=== PATIENT | female | born 1970 | race African-American/Black ===

== ENCOUNTER 2019-06-07 08:37 | Inpatient (IN) ==
--- NOTE | 2019-06-07 10:15 | Diag Imaging Result Doc PS360 ---
EXAM: CHEST-PORTABLE - 06/07/2019 HISTORY: stroke like symptoms TECHNIQUE: Portable chest COMPARISON: 07/12/2018 FINDINGS: Heart size is normal. The lungs appear essentially clear. There is apparent artifact from nipple shadow noted at the lateral right base. There is no pleural effusion or pneumothorax identified. IMPRESSION: No evidence of acute disease. Electronically signed by Roshan Huang 06/07/2019 10:13 AM
--- NOTE | 2019-06-07 10:17 | Diag Imaging Result Doc PS360 ---
EXAM: CT HEAD W/O CONTRAST - 06/07/2019 HISTORY: stroke like symptoms TECHNIQUE: CT head without contrast COMPARISON: None. FINDINGS: There is no evidence of intracranial hemorrhage, mass effect, midline shift, or hydrocephalus. There is no evidence of infarct, although acute infarcts may not be. There is no evidence of skull fracture. IMPRESSION: No visible acute intracranial abnormality. No hemorrhage or mass effect. This exam was performed using automated exposure control, adjustment of mA or kV according to patient size, and/or use of iterative reconstruction technique. Electronically signed by Roshan Huang 06/07/2019 10:15 AM
[2019-06-07 10:28] LABS: CREATININE 1.3 mg/dL (0.5-0.9); TOTAL BILIRUBIN 0.5 mg/dL (0.20-1.00); TOTAL PROTEIN 6.1 g/dL (6.3-8.3)
[2019-06-07 10:29] LABS: CALCIUM 6.1 mg/dL (8.8-10.2)
[2019-06-07] MEDS ORDERED: CALCIUM CHLORIDE 1 GM in NS 100 ML IV ONE (10:29)
--- NOTE | 2019-06-07 10:30 | PROVIDER DOCUMENTATION ---
This chart was entered by Mary Blue Scribe, acting as scribe for Heaven Michel MD. HPI-Neurological Disorder - General Chief Complaint: Numbness Stated Complaint: NUMBNESS (R) SIDE Time Seen by Provider: 06/07/19 08:50 Source: patient Allergies/Adverse Reactions: Patient Allergies Allergy/AdvReac Type Severity Reaction Status Date / Time Penicillins Allergy Intermediate RASH Verified 05/31/18 07:12 Home Medications: Home Medication List Medication Instructions Recorded Confirmed Last Taken Type Acetaminophen with Codeine 1 ea PO Q4H PRN PRN #15 tab 02/07/18 02/23/18 Unknown Rx [Tylenol with Codeine #3] Colchicine 0.6 mg PO DAILY PRN 02/07/18 02/23/18 Unknown History Esomeprazole [Nexium] 40 mg PO DAILY 02/07/18 02/23/18 Unknown History Promethazine [Phenergan] 25 mg PO Q6H PRN PRN #12 tab 02/07/18 02/23/18 Unknown Rx Acetaminophen with Codeine 1 ea PO Q4H PRN PRN #12 tab 02/23/18 Unknown Rx [Tylenol with Codeine #3] Allopurinol 100 mg PO DAILY #15 tab 02/23/18 Unknown Rx Hydrocodone/APAP 7.5 mg/325 mg 1 ea PO Q8H PRN PRN #10 tab 05/31/18 Unknown Rx [[place]-7.5] Indomethacin 50 mg PO TID PRN #20 cap 05/31/18 Unknown Rx Azithromycin 250 mg PO DIRECTED #6 tablet 07/12/18 Unknown Rx Indomethacin [Indocin] 25 mg PO DIRECTED #40 capsule 07/12/18 Unknown Rx - History of Present Illness-Neuro Nature of Presenting Problem: Patient is a 49 year old female who presents with numbness and tingling to right arm and right leg. States symptoms started yesterday and have worsened. History of TIA 3 weeks ago. Severity: reports: mild Onset/Duration: reports: 24 hours ago Timing: reports: still present, getting worse Character of Deficits: reports: altered sensation New weakness or altered sensation location:: reports: RUE, RLE Cognitive Baseline: alert, oriented x3 Gait Baseline: walks without assistance Associated Symptoms: reports: denies symptoms Similar Symptoms Previously?: Yes Recently seen or treated by another doctor?: No Review of Systems - Adult - REVIEW OF SYSTEMS - ADULT Constitutional: reports: no symptoms reported. denies: chills, fever, fatique Eyes: reports: no symptoms reported Ears, Nose, Mouth & Throat: reports: no symptoms reported Cardiovascular: reports: no symptoms reported Respiratory: reports: no symptoms reported Gastrointestinal: reports: no symptoms reported Genitourinary: reports: no symptoms reported Musculoskeletal: reports: no symptoms reported Integumentary: reports: no symptoms reported Neurological: reports: see HPI, numbness (RUE and RLE), paresthesia (RUE and RLE). denies: dizziness/vertigo, headache/migraines Psychiatric: reports: no symptoms reported Endocrine: reports: no symptoms reported Hematologic/Lymphatic: reports: no symptoms reported Allergic/Immunologic: reports: no symptoms reported All Other Systems: Reviewed and Negative Past History - Adult - PAST MEDICAL HISTORY-ADULT Review of Records: reports: Old Records Reviewed, Nursing Assessment Review, Med ications Reviewed, Social history reviewed & non-contributory. Major Childhood Illnesses: reports: denies history Cardiovascular: reports: HTN, hyperlipidemia Respiratory: reports: asthma Gastrointestinal: reports: pancreatitis Obstetrical/Gynecological: reports: denies history Genitourinary: reports: kidney disease Musculoskeletal: reports: arthritis (gout) Neurological: reports: Seizures/Epilepsy Psychiatric: reports: anxiety Endocrine/Immune: reports: other (gout) Other Conditions: reports: denies history - PRIOR SURGERIES/PROCEDURES Surgical/Procedure History: reports: cholecystectomy, , other (sinus surgery) - IMMUNIZATION STATUS Childhood Immunizations: See Nurse Assessment Flu Vaccine: See Nurse Assessment - FAMILY HISTORY Family History: reviewed, not pertinent - SOCIAL HISTORY Smoking: cigarettes, less than 1 pack/day Provider spent 3-5 mins advising pt. on dangers of tobacco.: Discussed manners to quit use, and f/u contacts for add'l counseling. Substance Use: alcohol (former) Physical Exam- Neurological - Physical Exam-Neuro Initial Vital Signs Reviewed: Yes General Appearance: alert, no apparent distress. negative: lethargic Eye Exam: bilateral eye: normal inspection HENMT: normocephalic/atraumatic, moist mucous membranes. negative: angioedema Head Injury: no evidence of injury. negative: ecchymosis, lacerations, swelling Respiratory: chest non-tender, lungs clear, normal breath sounds. negative: rales Cardiovascular: normal peripheral pulses, regular rate, rhythm. negative: tachycardia Abdominal Exam: normal bowel sounds, non tender, soft. negative: rigid Extremity: normal inspection. 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 negative: facial droop Motor/Sensory: no motor deficit, no pronator drift, sensory deficit (RUE and RLE.). negative: pronator drift (R), pronator drift (L) Neurologic: sensory deficit (RUE and RLE). negative: aphasia, facial droop Integumentary: normal color, normal turgor, warm/dry. negative: cyanosis, ecchymosis, rash Psych/Mental Status: normal mood/affect, oriented x 3. negative: anxious Progress - PLAN OF CARE/RESULTS Progress/Plan/Lab Results: Vital Signs - 8 hr 06/07/19 08:45 06/07/19 09:09 06/07/19 10:44 Temperature 99.1 F Pulse Rate 108 H 102 H 99 H Respiratory Rate 18 18 20 Blood Pressure 119/79 124/86 139/96 O2 Sat by Pulse Oximetry 100 100 100 06/07/19 11:30 Temperature Pulse Rate 104 H Respiratory Rate 14 Blood Pressure 144/98 O2 Sat by Pulse Oximetry 100 Laboratory Results - last 24 hr 06/07/19 06/07/19 06/07/19 09:22 09:54 09:54 WBC RBC Hgb Hct MCV MCH MCHC RDW Std Deviation Plt Count MPV Immature Gran % (Auto) Neut % (Auto) Lymph % (Auto) [place] % (Auto) Eos % (Auto) Baso % (Auto) Immature Gran # (Auto) Neut # (Auto) Lymph # (Auto) [place] # (Auto) Eos # (Auto) Baso # (Auto) PT INR PTT (Actin FS) Sodium 139 Potassium 3.0 L Chloride 110 H Carbon Dioxide 16 L Anion Gap 14 BUN 18 Creatinine 1.3 H Estimated GFR/1.73 m2 43 BUN/Creatinine Ratio 14 Glucose 103 POC Glucose 107 H Calculated Osmolality 280 Calcium 6.1 L* Phosphorus Total Bilirubin 0.50 AST 17 ALT 51 H Alkaline Phosphatase 135 H Troponin T 0.027 Total Protein 6.1 L Albumin 3.0 L Globulin 3.0 Albumin/Globulin Ratio 1.0 PTH Intact Stool Occult Blood Blood Type Antibody Screen Crossmatch 08/11/2506/07/19 06/07/19 09:54 09:54 09:54 WBC 12.13 H RBC 1.98 L Hgb 6.2 L Hct 20.2 L MCV 102.0 H MCH 31.3 H MCHC 30.7 L RDW Std Deviation 21.9 H Plt Count 131 MPV 12.2 H Immature Gran % (Auto) 0.2 Neut % (Auto) 74.1 Lymph % (Auto) 15.3 L [place] % (Auto) 8.7 Eos % (Auto) 1.5 Baso % (Auto) 0.2 Immature Gran # (Auto) 0.02 Neut # (Auto) 9.01 H Lymph # (Auto) 1.85 [place] # (Auto) 1.05 H Eos # (Auto) 0.18 Baso # (Auto) 0.02 PT 14.5 INR 1.07 PTT (Actin FS) 31.3 Sodium Potassium Chloride Carbon Dioxide Anion Gap BUN Creatinine Estimated GFR/1.73 m2 BUN/Creatinine Ratio Glucose POC Glucose Calculated Osmolality Calcium Phosphorus Total Bilirubin AST ALT Alkaline Phosphatase Troponin T Total Protein Albumin Globulin Albumin/Globulin Ratio PTH Intact 115 H Stool Occult Blood Blood Type Antibody Screen Crossmatch 06/07/19 06/07/19 06/07/19 09:54 09:54 11:40 WBC RBC Hgb Hct MCV MCH MCHC RDW Std Deviation Plt Count MPV Immature Gran % (Auto) Neut % (Auto) Lymph % (Auto) [place] % (Auto) Eos % (Auto) Baso % (Auto) Immature Gran # (Auto) Neut # (Auto) Lymph # (Auto) [place] # (Auto) Eos # (Auto) Baso # (Auto) PT INR PTT (Actin FS) Sodium Potassium Chloride Carbon Dioxide Anion Gap BUN Creatinine Estimated GFR/1.73 m2 BUN/Creatinine Ratio Glucose POC Glucose Calculated Osmolality Calcium Phosphorus 3.7 Total Bilirubin AST ALT Alkaline Phosphatase Troponin T Total Protein Albumin Globulin Albumin/Globulin Ratio PTH Intact Stool Occult Blood NEGATIVE Blood Type O POSITIVE Antibody Screen NEGATIVE Crossmatch See Detail Orders Category Date Time Status Admit - [facility] Routine AdmDCTranf 06/07/19 12:57 Active Admit [facility] Routine AdmDCTranf 06/07/19 15:48 Active Activity - Up with Assistance ORDERED Care 06/07/19 12:57 Active Apply Mechanical Device [QM] ORDERED Care 06/07/19 12:57 Active Cardiac Monitoring DIRECTED Care 06/07/19 09:08 Active Finger Stick Blood Sugar (ED) DIRECTED Care 06/07/19 09:08 Active Intake and Output-Strict ORDERED Care 06/07/19 12:57 Active Misc. NRSG Communication Order DIRECTED Care 06/07/19 09:08 Active Nursing- MD Consult Request ROUTINE Care 06/07/19 13:00 Active Saline Loc NOW Care 06/07/19 09:08 Active Transfuse .Give-Transfuse Care 06/07/19 12:28 Active Vital Signs Order Q 6-HR ASSESS Care 06/07/19 13:00 Active Z-Document. for Tele Applied ORDERED Care 06/07/19 13:00 Active Physician/Provider Consults Routine Cons 06/07/19 12:57 Ordered Clear Liquid Diet Diet 06/07/19 13:00 Active NPO Diet 06/08/19 00:01 Active CHEST-PORTABLE [RAD] Stat Exams 06/07/19 09:[address] HEAD W/O CONTRAST [CT] Stat Exams 06/07/19 09:08 Completed MRI BRAIN W/WO CONTRAST [MRI] Stat Exams 06/07/19 12:27 Completed BASIC METABOLIC PANEL [CHEM] DAILY Lab 06/08/19 06:00 Ordered BASIC METABOLIC PANEL [CHEM] DAILY Lab 06/09/19 06:00 Ordered BASIC METABOLIC PANEL [CHEM] DAILY Lab 06/10/19 06:00 Ordered CBC WITH DIFF [HEME] Stat Lab 06/07/19 09:54 Completed CBC WITH NO DIFF [HEME] DAILY Lab 06/08/19 06:00 Ordered CBC WITH NO DIFF [HEME] DAILY Lab 06/09/19 06:00 Ordered CBC WITH NO DIFF [HEME] DAILY Lab 06/10/19 06:00 Ordered CBC WITH NO DIFF [HEME] DAILY Lab 06/11/19 06:00 Ordered CBC WITH NO DIFF [HEME] DAILY Lab 06/12/19 06:00 Ordered COMPREHENSIVE METABOLIC PANEL [CHEM] Stat Lab 06/07/19 09:54 Completed HGB AND HCT [HEME] Q6H Lab 06/07/19 14:40 Completed HGB AND HCT [HEME] Q6H Lab 06/07/19 18:57 Ordered HGB AND HCT [HEME] Q6H Lab 06/08/19 00:57 Ordered HGB AND HCT [HEME] Q6H Lab 06/08/19 06:57 Ordered LRPC (RED CELLS) [BBK] Stat Lab 06/07/19 09:54 Results OCCULT BLOOD SCREEN STOOL PL Stat Lab 06/07/19 11:40 Completed PHOSPHORUS [CHEM] Stat Lab 06/07/19 09:54 Completed PT [PROTIME WITH INR] [COAG] Stat Lab 06/07/19 09:54 Completed PTH INTACT [CHEM] Stat Lab 06/07/19 09:54 Completed PTT [COAG] Stat Lab 06/07/19 09:54 Completed TROPONIN T Stat Lab 06/07/19 09:54 Completed TYPE & SCREEN [BBK] Stat Lab 06/07/19 09:54 Results URINALYSIS W/POSS RFLX CULT [URINALYSIS] Stat Lab 06/07/19 09:08 Uncollected URINE DRUG SCREEN Stat Lab 06/07/19 16:33 Ordered 0.9% Sodium Chloride Inj [Ns] 1,000 ml Med 06/07/19 13:00 Active IV 75 mls/hr Calcium Chloride 1 gm Med 06/07/19 10:29 Discontinued 0.9% Sodium Chloride Inj [Ns] 100 ml IV NOW Ondansetron [Zofran] Med 06/07/19 12:57 Active 4 mg IV Q4H PRN PRN Pantoprazole [Protonix] Med 06/07/19 13:00 Active 40 mg IV Q12H Sodium Chloride 0.9% Med 06/07/19 13:00 Active 5 ml INJ DIRECTED Telemetry [OM.EQ] Routine Oth 06/07/19 12:57 Active EKG [EKG] Stat Ther 06/07/19 09:08 Draft Echo Spec/Color Doppler Routine Ther 06/07/19 12:57 Ordered Transfer/Admit Order [TRANSFER] Routine Transfer 06/07/19 12:26 Completed Result Diagrams: 06/07/19 14:40 06/07/19 09:54 - EKG 1 Time of EKG reading by physician:: 09:28 EKG Read and Signed by:: Heaven Michel EKG Interpretation (*Must complete 3 of following elements*): Abnormal Rate: 101 Rhythm: sinus tachycardia Clements: normal IA Interval: normal Comments: possible left atrial enlargement - XRAY 1 XRAY Study: Chest Impression: See EMR Report ( EXAM: CHEST-PORTABLE - 06/07/2019 HISTORY: stroke like symptoms TECHNIQUE: Portable chest COMPARISON: 07/12/2018 FINDINGS: H eart size is normal. The lungs appear essentially clear. There is apparent artifact from nipple shadow noted at the lateral right base. There is no pleural effusion or pneumothorax identified. IMPRESSION: No evidence of acute disease. Electronically signed by Roshan Huang 06/07/2019 10:13 AM 06/07/19 1013 Interpreting Physician: Roshan Huang MD Dictated Date/Time: 06/07/19 1010 cc: Heaven Michel MD; None,PCP) - CT/MRI 1 CT Study: Head Impression: See EMR Report ( EXAM: CT HEAD W/O CONTRAST - 06/07/2019 HISTORY: stroke like symptoms TECHNIQUE: CT head without contrast COMPARISON: None. FINDINGS: There is no evidence of intracranial hemorrhage, mass effect, midline shift, or hydrocephalus. There is no evidence of infarct, although acute infarcts may not be. There is no evidence of skull fracture. IMPRESSION: No visible acute intracranial abnormality. No hemorrhage or mass effect. This exam was performed using automated exposure control, adjustment of mA or kV according to patient size, and/or use of iterative reconstruction technique. Electronically signed by Roshanakila Huang 06/07/2019 10:15 AM 06/07/19 1015 Interpreting Physician: Roshan Huang MD Dictated Date/Time: 06/07/19 1013 cc: Heaven Michel MD; None,PCP) - CONSULTS/PCP/HOSPITALIST Notification #1 *Consult/PCP/Hospitalist*: Dr. Steel Time Discussed: 13:19 Reason/Comments: Dr. Michel consulted with Dr. Steel about patient Consult Disposition: Will see in ED, Admit Departure - Departure Date of Disposition Decision: 06/07/19 Time of Disposition Decision: 12:32 DIAGNOSIS: Hypocalcemia, TIA (transient ischemic attack), Anemia Disposition: ADMITTED INPATIENT 09 Certified Medical Emergency: Emergent Condition: Fair - Critical Care Note This patient required my direct & personal management of CC.: Yes Total Time (mins): 32 Critical Care Statement: This patient required my direct personal management to treat or rule out processes, the absence of which, could potentiallly result in sudden, clinically significant life or limb threatening deterioration. Attestation - Physician/ DAYANA Attestation The physician spent face to face time with patient:: Yes Advanced Practice Provider documentation review:: Supervising physician onsite and consulted in the evaluation and care of this patient. The physician did have a face to face encounter with the patient. This chart was documented by the indicated scribe, (Mary Blue Scribe) and accurately reflects the services I performed and decisions made by me, Heaven Michel MD, as attested by the provider's signature.
[2019-06-07 11:02] LABS: INR 1.07; PROTIME 14.5 Seconds (11.0-16.0); PTT 31.3 Seconds (22.3-41.8)
[2019-06-07 11:15] LABS: BASO# 0.02 X1000 (0.0-0.2); BASO% 0.2 % (0.0-0.8); EOS# 0.18 X1000 (0.0-0.7); EOS% 1.5 % (0.0-10.0); HEMATOCRIT 20.2 % (37.0-47.0); HEMOGLOBIN 6.2 g/dL (12.0-16.0); IMM GRAN# 0.02 X1000 (0.0-0.04); IMM GRAN% 0.2 % (0.0-0.5); LYMPH# 1.85 X1000 (1.2-3.4); LYMPH% 15.3 % (20.5-51.1); MCH 31.3 PG (27-31); MCHC 30.7 g/dL (33-37); MONO# 1.05 X1000 (0.11-0.59); MONO% 8.7 % (1.7-9.3); MPV 12.2 FL (7.4-10.4); NEUT# 9.01 X1000 (1.4-6.5); NEUT% 74.1 % (42.2-75.2); PLT 131 X1000 (130-400); RBC 1.98 XMIL (4.2-5.4); RDW 21.9 % (11.5-14.5); WBC 12.13 X1000 (4.8-10.8)
--- NOTE | 2019-06-07 11:57 | EKG Report ---
Test Performed on : 06/07/2019 09:28:24 AM Test Reason : Stroke like symptoms Blood Pressure : / mmHG Vent. Rate : 101 BPM Atrial Rate : 101 BPM P-R Int : 144 ms QRS Dur : 064 ms QT Int : 372 ms P-R-T Axes : 078 052 069 degrees QTc Int : 482 ms Sinus tachycardia. Possible Left atrial enlargement Borderline ECG When compared with ECG of 12-JUL-2018 09:59, No significant change was found Unconfirmed Result
[2019-06-07 12:30] LABS: OCCULT BLOOD 1 NEGATIVE (NEGATIVE)
[2019-06-07] MEDS ORDERED: ZOFRAN IV PRN ×2 (12:57→17:23)
[2019-06-07] MEDS ORDERED: PROTONIX IV SCH (13:00)
[2019-06-07] MEDS ORDERED: NS 1,000 ML IV SCH (13:00)
[2019-06-07] MEDS ORDERED: SODIUM CHLORIDE 0.9% INJ SCH ×2 (13:00→17:30)
--- NOTE | 2019-06-07 14:52 | Diag Imaging Result Doc PS360 ---
EXAM: MRI BRAIN W/WO CONTRAST - 06/07/2019 HISTORY: stroke like symptoms TECHNIQUE: MRI brain without and with contrast. Images are obtained prior to and following gadolinium administration. COMPARISON: 06/07/2019 CT head without contrast FINDINGS: There is no evidence of intracranial hemorrhage, mass effect, midline shift, or hydrocephalus. There are no substantial signal abnormalities identified. The diffusion weighted images show no areas of restricted diffusion (no evidence of acute infarct). There is no abnormal enhancement identified. IMPRESSION: Unremarkable exam. No evidence of infarct. Electronically signed by Roshan Huang 06/07/2019 2:50 PM
[2019-06-07 14:53] LABS: HEMATOCRIT 19.3 % (37.0-47.0); HEMOGLOBIN 6.2 g/dL (12.0-16.0)
[2019-06-07] MEDS ORDERED: POTASSIUM CHLORIDE 20% LIQUID PO ONE (15:16)
[2019-06-07] MEDS ORDERED: NS 500 ML ONE (18:29)
[2019-06-07] MEDS ORDERED: TYLENOL PO ONE (18:30)
[2019-06-07 18:36] LABS: UR AMPHETAMINES QUAL NONE DETECTED (NONE DETECT); UR BARBITUATES QUAL NONE DETECTED (NONE DETECT); UR BENZODIAZEPIN QUAL NONE DETECTED (NONE DETECT); UR CANNABINOIDS QUAL NONE DETECTED (NONE DETECT); UR COCAINE QUAL NONE DETECTED (NONE DETECT); UR METHADONE QUAL NONE DETECTED (NONE DETECT); UR OPIATES QUAL NONE DETECTED (NONE DETECT); UR OXYCODONE QUAL NONE DETECTED (NONE DETECT); UR PCP QUAL NONE DETECTED (NONE DETECT)
[2019-06-07 19:44] LABS: HEMATOCRIT 19.9 % (37.0-47.0); HEMOGLOBIN 6.2 g/dL (12.0-16.0)
[2019-06-07] MEDS ORDERED: LMX 5 CREAM TOP PRN (19:50)
--- NOTE | 2019-06-07 19:58 | HISTORY AND PHYSICAL ---
PRIMARY CARE PROVIDER: Dr. Mauricio. First name unknown, but he is located at [facility] in [place] as the primary care, purple pod. Phone number is [phone]. MOBILE PET GROOMER: Dr. Saab. CHIEF COMPLAINT: Numbness in the right arm and right leg, and blood with her bowel movement this morning. HISTORY OF PRESENT ILLNESS: Ms. Jodie Alcaraz is a 49-year-old female with a medical history, most recently around 5 weeks ago or in the last 5 weeks had a stroke, causing right-sided residual. She had a witnessed seizure at [facility] and at that time was taken to [facility] in [place], [place], where she was diagnosed with stroke. Then around 3 weeks ago she had a TIA which affected her left side, but that resolved. Most recently she came here to visit her family. She has been living in [place]. She has been working at the [employer] up until she had her stroke. She claims that this morning she had a bowel movement with bright red blood in the toilet and so much that it was dripping down. Denies that it was vaginal. States that it was definitely gastrointestinal. During her stay while she was at [facility] in [place], [place], she was treated for a GI bleed there. There are not a whole lot of details on that. Apparently, according to her, she was scoped from the top and the bottom and they treated her for a lower GI bleed. She had received 2 packed red blood cells while she was there. Apparently she has been a pretty heavy drinker for at least 20 years out of her life, gin every other day at least except for when she had her stroke. She has not had any alcohol since then. So, no alcohol in the last 5 weeks according to her. Vital signs are stable. There is no obvious active bleeding, although she does have a low hemoglobin and hematocrit. We will transfer over to [facility]. Neurologic- parks, she does complain of numbness and tingling in the right upper and lower extremity, but MRI is negative for any acute stroke. PAST MEDICAL HISTORY: 1. 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 2. TIA 3 weeks ago, 05/2019. 3. Gout. 4. Hypertension. 5. Anxiety attacks. 6. Depression. 7. Seizures secondary to alcohol withdrawal. 8. History of gastrointestinal bleeding. 9. History of pancreatitis. PAST SURGICAL HISTORY: 1. Cholecystectomy. 2. section. 3. Sinus surgery. 4. Left eye/facial surgery secondary to trauma. 5. Recent EGD and colonoscopy in the last 5 weeks. SOCIAL HISTORY: Less than a half pack per day smoker and has so for 20+ years. No alcohol since her stroke around 5 weeks ago, but prior to that drank gin every other day for 20-plus years. Denies any illicit drug use. She lives by herself in [place], [place] and has been working at the [employer] up until her stroke. FAMILY HISTORY: On the mother's side of the family there is lung cancer and stroke. On father's side of the family is breast cancer and her father had gastric cancer. ALLERGIES: Penicillin. MEDICATIONS: Home medications have not been verified, so we will wait for those to be reconciled, as she has most recently had some changes to her medications. REVIEW OF SYSTEMS: Fourteen-point review of systems are complete and all are negative except for those mentioned above in HPI. She denied having abdominal pain until palpated, and she had generalized abdominal pain. PHYSICAL EXAMINATION: VITAL SIGNS: Temperature 99.1 degrees, heart rate 99, respiratory rate 20, blood pressure 139/96, O2 saturation 100% on room air. Five feet 6 inches tall, 98 pounds. BMI is 15.8. GENERAL: Ms. Jodie Alcaraz is a 49-year-old female. She is in no acute distress. She is able to answer most questions appropriately. HEENT: Atraumatic, normocephalic. Pupils equal, round and reactive to light. Extraocular movements intact. Mucous membranes are dry. NECK: Trachea midline. CARDIOVASCULAR: S1, S2. Regular rate and rhythm. No rubs, gallops, murmurs. No lower extremity edema. Dorsalis and radial pulses +2. Negative JVD or carotid bruits. PULMONARY: Clear to auscultation. Bilateral breath sounds. No accessory muscle use or work of breathing noted. GASTROINTESTINAL: Soft. Tender in all 4 quadrants. Positive bowel sounds that are hyperactive x4. EXTREMITIES: Moves left upper and lower extremity equally with strength of 5/5. The right upper and lower extremities have strength of 4/5. Decreased range of motion, is slow to move. NEUROLOGIC: Oriented x3. Follows commands. Sensory is intact except for the right upper and lower extremity. SKIN: Warm, dry, intact. LABORATORY DATA: White blood cells 12,000, hemoglobin 6, hematocrit 19, platelet count 131,000. INR is 1.07, PTT 31.3. Sodium 139, potassium 3.0, BUN 18, creatinine 1.3, glucose 107, calcium 6.1, phosphorus 3.7, bilirubin 0.50, AST 17, ALT 51. Troponin 0.027. Albumin 3.0. PTH 115. Stool is negative for blood. No micro. IMAGING: Chest x-ray: No acute disease. Head CT: There is no acute infarct but there are also really no signs of an old infarct, either. Brain MRI is also negative. There are no acute findings. There is also no mention of old stroke, either. EKG: Sinus tachycardia, rate 101, QTc 482. ASSESSMENT AND PLAN: 1. Recent gastrointestinal bleed, treated at [facility], now with a new recurrent gastrointestinal bleed with lower gastrointestinal bright red blood this morning x1. She states that she has been taken ibuprofen 400 mg every day for the last 6 days, but prior to today she has been having normal brown bowel movements every day. She has been having nausea and some chills with it. She is started on Protonix twice a day. She is going to be getting 2 units of packed red blood cells. We will do serial hemoglobin and hematocrit. We are requesting information from [facility] on the details of an esophagogastroduodenoscopy and a colonoscopy that she is claiming to have had done there. We are consulting Gastroenterology, Dr. Vitale. 2. Recent cerebrovascular accident with right-sided residual, recent transient ischemic attack. States she has been taking ibuprofen instead of aspirin, and is just really not a good historian on her medications that she takes. She is unable to tell me much detail about what medications she was sent home on. She is actually here for complaints of new onset of numbness and tingling in the right arm and the right lower extremity, but imaging head CT and brain MRI are both negative for any new findings. She denies any pain in her back. We will do an echocardiogram to evaluate heart function and any risk for clots. 3. Electrolyte imbalance with hypokalemia and hypocalcemia. It looks like we have only been giving calcium. The potassium is 3.0, so we will need to give her some potassium as well and re-evaluate in the morning. Calcium is low at 6.1, and a PTH level was drawn and is actually elevated at 115. 4. It looks like she may have some chronic kidney disease stage 2 or 3. Creatinine is 1.3, and last year it was 1.8, so no acute injury at this time. She is getting intravenous fluid hydration. 5. Leukocytosis. Could just be all inflammatory. We need to get a urinalysis. We will get blood culture. Chest x-ray is clear. Essentially afebrile. The temperature is 99.1 degrees. 6. History of gout. Her medications have not been reconciled so we cannot start anything back just yet. 7. Hypertension. Stable right now. 8. Anxiety and depression. 9. Seizure disorder from alcohol withdrawals in the past. We will monitor. 10. Tobacco abuse. Cessation discussed. 11. Remote history of alcohol abuse. Has been without alcohol for at least 5 weeks since her stroke. 12. Deep venous thrombosis. Sequential compression devices. Dictated by AVINASH Brower for David Serrano MD Addendum: Patient seen and examined by myself. Agree with AVINASH note. It reflects my assessment and plan. Patient is being admitted to hospital for GI bleeding. She has been scoped recently approximately one month ago. Will start Protonix 40 mg IV q12, will transfer to [facility] for GI evaluation. Will transfuse if needed and will replete potassium. cc: AVINASH Brower MD Siddharth Patel, MD [facility]
[2019-06-07] MEDS: NEXIUM IV SCH (20:10)
[2019-06-07] MEDS: NS 1,000 ML IV SCH (20:11)
--- NOTE | 2019-06-07 20:18 | Diag Imaging Result Doc PS360 ---
EXAM: SHOULDER-RIGHT 06/07/2019 HISTORY: Right shoulder pain. Evaluate for dislocation TECHNIQUE: Right shoulder two views COMMENT: There is no evidence of fracture or dislocation. No evidence of erosion or periosteal reaction is present. IMPRESSION: No acute bony disease. Electronically signed by Kj Ibanez 06/07/2019 8:16 PM
[2019-06-07] MEDS: TUMS PO SCH (21:11)
--- NOTE | 2019-06-07 23:03 | PROGRESS NOTE ---
DATE: 06/07/2019 INTERVAL HISTORY: Ms. Alcaraz was transferred from [facility] for suspected gastrointestinal bleed and right upper extremity right lower extremity weakness. Apparently, Ms. Alcaraz had recent episode of CVA following right upper extremity lower extremity weakness requiring hospitalization in [facility] where she also had an episode of suspected upper GI bleed requiring endoscopy and blood transfusion who was later on discharged to rehab on aspirin and Plavix likely for secondary CVA prophylaxis and also on prednisone for unclear reason. She came to [facility] with chief complaints of worsening right upper extremity and lower extremity weakness, shortness of breath on exertion. In the [facility], she was found to have tachycardia, low hemoglobin so was transferred to [facility] for further management. SUBJECTIVE: Patient states that she does have prior history of seizures and takes Keppra. She also takes aspirin and Plavix daily. She also took a dose of ibuprofen yesterday. She continues to complain of weakness of right upper and lower extremities. She also complains of right shoulder pain, which has been ongoing for almost 2 weeks now. She denies any chest pain. She denies wheezing. VITALS: Temperature 99.3 degrees, pulse 96, respiratory rate 18, blood pressure 120/70, saturating 100% on room air. OBJECTIVE: General: Cachectic, not in any acute distress. HEENT: Conjunctival pallor. Respiratory: Air entry bilateral equal with no wheeze, rhonchi or crackles. Cardiovascular: S1, S2 normal. No murmur or gallop. Abdomen: Soft. Active bowel sounds. No lower extremity edema. Rectum had brown-looking stool and negative fecal occult blood test. Extremities: She does have significant tenderness in right shoulder region. I am not able to localize or pinpoint location. Her power appears to be 3 to 4/5 in right lower extremity at hip flexion and extension. LABORATORY DATA: Suggestive of macrocytic anemia. Normal platelet count, which is slightly less than the previous platelet count though. Normal coagulation, hypokalemia, hyperchloremia, low bicarbonate, close to normal anion gap, kidney dysfunction, hypocalcemia, and negative occult blood test. ASSESSMENT AND PLAN: 1. Suspected upper gastrointestinal bleed pending records from outside hospital in the setting of use of aspirin, ?Plavix, prednisone and occasional ibuprofen. 2. Acute blood loss anemia. 3. Reported history of recent stroke affecting right upper and lower extremities on aspirin, Plavix for secondary cerebrovascular accident prophylaxis likely. 4. Prior history of peptic ulcer disease. 5. Hypocalcemia. 6. Kidney failure. 7. History of seizure. 8. Right shoulder pain. 9. History of anxiety. PLAN: 1. I will transfuse her 2 units of packed red blood cells. We will follow up with hemoglobin after that. I will also follow up with iron panel, vitamin B12 and folic acid. He does not have active bleeding on my rectal examination, though she does have external hemorrhoids and brown-looking stool. 2. I will also start her on Keppra prophylactically as we await medication reconciliation. I am holding aspirin and Plavix and prednisone from now on until we stabilize hemoglobin. Gastroenterology has been consulted. Discussed with patient. Her questions have been answered. cc: Franklin Bush MD MTDD
[2019-06-07 23:16] LABS: IRON SATURATION 9 %; TIBC 188 ug/dL; TOTAL IRON 16 ug/dL (49-151); UNBOUND IRON 172 ug/dL (112-346)
[2019-06-08 00:08] LABS: FERRITIN 407 ng/mL (13-150)
[2019-06-08 01:34] LABS: URINE SOURCE CLEAN CATCH
[2019-06-08 01:39] LABS: BILIRUBIN URINE NEGATIVE (NEGATIVE); BLOOD URINE NEGATIVE (NEGATIVE); COLOR YELLOW; GLUCOSE URINE NEGATIVE (NEGATIVE); KETONE URINE NEGATIVE (NEGATIVE); LEUKOCYTES URINE NEGATIVE (NEGATIVE); NITRITE URINE NEGATIVE (NEGATIVE); PH URINE 5.5; PROTEIN URINE NEGATIVE (NEGATIVE); TURBIDITY URINE CLEAR (CLEAR); UROBILINOGEN URINE NORMAL (NORMAL)
[2019-06-08 01:40] LABS: UR EPITHELIAL CELLS <10 /HPF (<10); URINE BACTERIA NEGATIVE /HPF; URINE RBC <10 /HPF (<10); URINE WBC <10 /HPF (<10)
[2019-06-08] MEDS: PERCOCET-5 PO PRN ×2 (01:59→18:08)
[2019-06-08] MEDS: KEPPRA 500 MG in NS 100 ML IV SCH ×2 (03:49→15:50)
[2019-06-08 04:28] LABS: HEMATOCRIT 28.3 % (37.0-47.0); HEMOGLOBIN 9.3 g/dL (12.0-16.0); MCH 31.2 PG (27-31); MCHC 32.9 g/dL (33-37); MPV 12.1 FL (7.4-10.4); RBC 2.98 XMIL (4.2-5.4); RDW 19.4 % (11.5-14.5); WBC 11.02 X1000 (4.8-10.8)
[2019-06-08 05:21] LABS: CREATININE 1.2 mg/dL (0.5-0.9); POTASSIUM 3.4 mmol/L (3.5-5.1)
[2019-06-08 05:44] LABS: CALCIUM 6.7 mg/dL (8.8-10.2)
[2019-06-08] MEDS: NEXIUM IV SCH (06:13)
--- NOTE | 2019-06-08 06:28 | Diag Imaging Result Doc PS360 ---
CT ABDOMEN/PELVIS W/O CONTRAST - 06/07/2019 INDICATION: gib COMPARISON: 05/31/2018 FINDINGS: The lung bases are clear and the heart size is normal. The stomach is extremely distended with heterogeneous solid frothy material. There is also moderate constipation. There is moderate rectal stool impaction. There is severe diverticulosis of the colon. No bowel obstruction or inflammation. No radiodense renal stones. No hydronephrosis or hydroureter. Duplicated renal collecting systems bilaterally. There is severe pancreatic atrophy. There are severe coarse dystrophic calcifications all throughout the pancreas compatible with severe chronic pancreatitis. IUD in the uterus in good position. Urinary bladder contains some dense material consistent with excreted contrast from the MRI from yesterday. There are moderate degenerative changes of the spine. No acute or suspicious bony lesion. IMPRESSION: 1. Severe gastric distention with frothy material. This either represents a severe stomachache or gastroparesis. 2. Constipation with rectal stool impaction. 3. Severe diverticulosis coli. 4. Severe chronic pancreatitis with severe pancreatic atrophy. This exam was performed using automated exposure control, adjustment of mA or kV according to patient size, and/or use of iterative reconstruction technique Electronically signed by Benedict Branltey 06/08/2019 6:25 AM
[2019-06-08] MEDS: NS 1,000 ML IV SCH (07:59)
[2019-06-08] MEDS: TUMS PO SCH ×3 (09:14→16:09)
--- NOTE | 2019-06-08 14:56 | ECHO REPORT ---
ORDER DATE: 06/07/2019 ECHOCARDIOGRAPHIC MEASUREMENTS: 1. Interventricular septum 0.8, left ventricular posterior wall 0.8, diastolic diameter 4.5, left atrium 2.9. 2. Aorta 2.7. Aortic valve leaflets were trileaflet. 3. Pulmonic valve was normal. 4. Tricuspid valve was normal. 5. Mitral valve was normal. 6. There is trace pulmonary regurgitation. 7. Mild mitral regurgitation. 8. Mild tricuspid regurgitation. Peak velocity across the aortic valve less than 2 m/sec. There is no aortic stenosis or regurgitation. Peak velocity across the tricuspid valve was 2.4 m/sec. 9. Pulmonary artery systolic pressure of 33 mmHg. 10. Normal left ventricular cavity size. Estimated ejection fraction of 60% to 65%. 11. There is no pericardial effusion or obvious intracardiac mass or thrombus seen. 12. Interatrial septum was aneurysmal. 13. Saline contrast study was done which was negative for patent foramen ovale. cc: MD David Park MD Siddharth Patel, MD
[2019-06-08] MEDS ORDERED: VITAMIN D PO SCH (17:00)
[2019-06-08] MEDS ORDERED: D5W 500 ML IV SCH (17:45)
[2019-06-08] MEDS: DULCOLAX PR SCH ×2 (18:04→21:25)
[2019-06-08] MEDS: MIRALAX PO SCH ×3 (18:09→21:25)
[2019-06-08] MEDS: KLOR-CON PO SCH ×2 (18:09→21:25)
[2019-06-08] MEDS: KEPPRA PO SCH (21:25)
--- NOTE | 2019-06-08 21:33 | PROGRESS NOTE ---
DATE: 06/08/2019 INTERVAL HISTORY: She received 2 units of blood transfusion and she tolerated it well. Did not have any acute other events. She is feeling much better. Shoulder x-ray did not have any acute pathology. She has not had any more bloody bowel movement. Her hypocalcemia is better and she is receiving treatment for vitamin D deficiency. Echocardiogram and CT scan of the abdomen and pelvis were largely normal except stool impaction. She does have some electrolyte abnormality including hypokalemia which is currently being repleted. SUBJECTIVE: She denies any nausea, vomiting, anymore abdominal pain. She continues to have right-sided shoulder pain. I discussed with her about the findings. I answered all of her questions. VITALS: Temperature 98.8 degrees, pulse 90, respiratory 20, blood pressure 110/69, saturating 100% on room air. PHYSICAL EXAMINATION: Has severe protein energy malnutrition, some missing teeth, not in any acute distress. Oral cavity is moist. Air entry bilaterally equal. No wheeze, rhonchi, or crackles. S1, S2 normal. No murmur, rub, or gallop. Abdomen soft. Active bowel sounds. No lower extremity edema. She is alert and oriented x3. She does have some tenderness around right shoulder joint right scapular region. LABS: Suggestive of a mild leukocytosis. Hemoglobin of 9.3 which increased from 6.2 yesterday, platelet of 113,000. She does have , hyperchloremia, hypokalemia, low bicarbonate, what appears to be chronic renal failure in stage 3A range, hypocalcemia which is better to 6.7 calcium, iron saturation suggested she may have component of iron deficiency. No new microbiological data. IMAGING: Brain MRI did not detect any evidence of intracranial hemorrhage, mass effect, midline shift or hydrocephalus. There was no evidence of acute infarct or any abnormal enhancement. The echocardiogram on June 2019 had ejection fraction of 60%-65% without any intracardiac mass or thrombus. Abdomen pelvis CT had rectal stool impaction and constipation. ASSESSMENT AND PLAN: 1. Suspected gastrointestinal bleed in the setting of aspirin and prednisone and occasional ibuprofen use now resolved. I will transition her proton pump inhibitors from oral formulation, GI on board. Will continue to monitor her CBC. I am holding her aspirin for now considering her acute blood loss anemia. Outside hospital records are pending where she claims she had EGD and colonoscopy. 2. History of cerebrovascular accident affecting likely left hemisphere status post right-sided upper and lower extremity weakness. One of the images on records suggests she probably had left cerebellar infarct. I am holding her aspirin and I will resume her statin. I will continue physical therapy. Prior records are pending. 3. Hypocalcemia with vitamin D deficiency is currently being repleted. Hypernatremia, hyperchloremia, low bicarbonate in the setting of hyperchloremic acidosis. I will stop intravenous fluids and follow up with electrolytes tomorrow. I am also giving her small dose of dextrose 5% water. I will continue vitamin D repletion and calcium repletion with calcium carbonate . 4. Kidney failure. The chronicity is unclear however she may have chronic kidney disease stage 3 which appears to be stable. 5. Others. Continue home levetiracetam for history of seizure, allopurinol for history of gout, bisacodyl and MiraLAX for rectal stool impaction, folic acid and iron with multivitamin for recent anemia. DISPOSITION: Continue to monitor patient inside the hospital to make sure she does not have any more bleeding episodes. Plan of care discussed with her, her questions have been answered. In future I would consider getting right shoulder ultrasound to evaluate for her right shoulder pain. cc: Franklin Bush MD MTDD
--- NOTE | 2019-06-08 23:56 | GASTROENTEROLOGY CONSULTATION ---
DATE: 06/08/2019 Reason for consult: hematochezia HPI: Ms. Jodie Alcaraz is a 49 year old woman with h/o alcoholism, chronic pancreatitis, recent CVA with residual right-sided weakness who presented with BRBPR. She reports recently prolonged hospital stay at [facility] in [place] where she underwent EGD and colonoscopy and treated for LGIB. She was transfused at that time. +diarrhea. STANLEY, palpitations, CP, fatigue, melena. +weight loss. She takes aspirin 81mg daily. She states that she has been taken ibuprofen 400 mg every day for the last 6 days. She is also on prednisone for unclear indication. ROS: as per HPI: otherwise 12 point ROS negative PMH: Recent CVA, TIA, gout, history of chronic pancreatitis, seizure d/o, h/o alcoholism, HTN, h/o GI bleed PSH: Cholecystectomy, section, sinus surgery, Left eye/facial surgery secondary to trauma. FH: No FHx of GI malignancies SH: Lives in [place]. / ppd smoker for 20 years. She drinks gin 1/2 to 1 pint/day until recent stroke. No drugs MED: reviewed in chart ALL: PCN PE: T 99.1 HR 99 RR 20 BP 139/96 100% RA GEN: awake, alert NAD HEENT: anicteric, MMM, EOMI NECK: supple, no JVD CV: RRR, no murmurs PULM: CTAB, no wheezing ABD: soft, mild TTP throughout, no rebound or guarding, BS present EXT: no cce NEURO: decreased sensation right-side LABS: White blood cells 12,000, hemoglobin 6, hematocrit 19, platelet count 131,000. INR is 1.07, PTT 31.3. Sodium 139, potassium 3.0, BUN 18, creatinine 1.3, glucose 107, calcium 6.1, phosphorus 3.7, bilirubin 0.50, AST 17, ALT 51. Troponin 0.027. Albumin 3.0. PTH 115. Stool is negative for blood. No micro. IMAGING: Chest x-ray: No acute disease. Head CT: There is no acute infarct but there are also really no signs of an old infarct, either. Brain MRI is also negative. There are no acute findings. There is also no mention of old stroke, either. EKG: Sinus tachycardia, rate 101, QTc 482. A/P: Ms. Jodie Kieran is a 49 year old woman with h/o alcoholism, chronic pancreatitis, recent CVA with residual right-sided weakness who presented with BRBPR. She had recent EGD/colonoscopy in [place] that was concerning for LGIB. I suspect diverticular. FOBT was negative. She as transfused 1 unit pRBC with improvement in hgb. Obtain records from outside hospital. Trend H/H, transfuse prn goal hgb 7-8. Holding aspirin. Patient may need repeat endoscopic evaluation based on outside hospital records. # Hematochezia # Acute GI blood loss anemia # Recent CVA Thank you for this consult. Will follow with you cc: Franklin Bush MD MTDD
[2019-06-09] MEDS: PERCOCET-5 PO PRN ×2 (01:33→16:10)
[2019-06-09 05:50] LABS: HEMATOCRIT 26.8 % (37.0-47.0); HEMOGLOBIN 8.6 g/dL (12.0-16.0); MCH 31.9 PG (27-31); MCHC 32.1 g/dL (33-37); MCV 99.3 FL (81-99); MPV 11.6 FL (7.4-10.4); RBC 2.7 XMIL (4.2-5.4); RDW 19.5 % (11.5-14.5); WBC 7.89 X1000 (4.8-10.8)
[2019-06-09] MEDS: PRILOSEC PO SCH ×2 (06:02→20:14)
[2019-06-09 06:20] LABS: CREATININE 1.3 mg/dL (0.5-0.9); POTASSIUM 4.8 mmol/L (3.5-5.1)
[2019-06-09 06:39] LABS: CALCIUM 6.5 mg/dL (8.8-10.2)
[2019-06-09] MEDS ORDERED: CALCIUM GLUCONATE 1 GM in NS 50 ML IV ONE (06:47)
[2019-06-09] MEDS ORDERED: MAGNESIUM SULFATE 4 GM/S.W.I. 4 GM/100 ML IVPB IV ONE (06:47)
[2019-06-09] MEDS: DULCOLAX PR SCH ×2 (08:51→20:27)
[2019-06-09] MEDS: MIRALAX PO SCH ×2 (08:51→20:27)
[2019-06-09] MEDS: KEPPRA PO SCH ×2 (08:52→20:15)
[2019-06-09] MEDS: THERA M PLUS PO SCH (08:53)
[2019-06-09] MEDS: ZYLOPRIM PO SCH (08:53)
[2019-06-09] MEDS: TUMS PO SCH ×4 (08:53→20:15)
[2019-06-09] MEDS: FOLIC ACID PO SCH (08:53)
[2019-06-09] MEDS ORDERED: LIPITOR PO SCH (09:00)
[2019-06-09] MEDS ORDERED: NEXIUM PO SCH (09:00)
[2019-06-09] MEDS: MAGNESIUM SULFATE 2 GM/S.W.I. 2 GM/50 ML IVPB IV SCH ×2 (09:55→15:29)
[2019-06-09] MEDS ORDERED: LIPITOR PO ONE (12:49)
--- NOTE | 2019-06-09 14:14 | PROGRESS NOTE ---
DATE: 06/09/2019 INTERVAL HISTORY: She did have 2 bowel movements, one of which was bloody. According to the night team nursing report as well as patient report, there were also couple of blood spots on the bed that I could see. She had significant low magnesium which is currently being repleted. She has requested to have her home trazodone started, however, I do not see it listed on her medication list. SUBJECTIVE: She is feeling good. Denies any chest pain, shortness of breath. She denies any nausea, vomiting. She states that she is eating better than before. We discussed about blood count, low magnesium and GI consult, the report of which is currently pending. OBJECTIVE: Vital Signs: Temperature 97.7 degrees, pulse 88, respiratory rate 18, blood pressure 128/87, saturating 100% on room air. General: Appears to have severe protein energy malnutrition, not in any acute distress. HEENT: Poor dentition. Oral cavity is moist. Lungs: Air entry bilaterally equal. No wheeze, rhonchi, or crackles. Cardiovascular: S1, S2 normal. No murmur, rub, or gallop. Abdomen: Soft. Active bowel sounds. Extremities: No lower extremity edema. Neurologic: She is alert oriented x3. She is able to move right shoulder better than before now. LABORATORY DATA: Labs are significant for resolution of leukocytosis, macrocytic anemia with hemoglobin of 8.6. Her thrombocytopenia is better. She does have hyperchloremia, low bicarbonate and what appears to be chronic kidney disease stage 3. Her hypocalcemia is stable. Her hypomagnesemia is currently being repleted. ASSESSMENT AND PLAN: 1. Gastrointestinal bleed with documented history of use of aspirin, prednisone and occasionally ibuprofen. She continues to have bleed. She is status post 2 units of packed red blood cells for acute blood-loss anemia. Gastroenterology on board. Depending on her course, would plan endoscopy on Tuesday. Formal report is pending. I am continuing to hold her aspirin. 2. Hypocalcemia, hypomagnesemia with vitamin D deficiency. Continue to replete her vitamin D, calcium carbonate and magnesium. Follow up with repeat electrolytes. 3. History of cerebrovascular accident affecting left hemisphere, status post right-sided upper and lower extremity weakness. The detailed report from outside hospital is pending. Likely records would be back on Tuesday. I am holding her aspirin considering her gastrointestinal bleed, and I am going to increase her atorvastatin dose to 40 mg. She is at high risk for recurrent stroke, however considering active GI bleeding, she may not be a good candidate for antiplatelets at the moment. She understood it. 4. Kidney failure, likely in the setting of chronic kidney disease stage 3. Appears to be stable. I will continue to monitor BMP. 5. Others. Continue allopurinol for gout. She does have some swelling of right 2nd finger, folic acid for macrocytic anemia, levetiracetam for history of seizure, iron with multivitamin for chronic anemia, omeprazole oral b.i.d. for suspected gastrointestinal bleed, Percocet for chronic pain, MiraLAX for constipation. 6. Disposition. Will continue to monitor the patient inside the hospital. The plan is to later on discharge her home to [place] or with her mother on home PT sometime next week. She agrees. cc: Franklin Bush MD
[2019-06-09] MEDS: DESYREL PO PRN (23:07)
[2019-06-10] MEDS: PRILOSEC PO SCH ×2 (06:20→20:52)
[2019-06-10 06:37] LABS: HEMATOCRIT 28.4 % (37.0-47.0); MCHC 31.7 g/dL (33-37); MCV 101.1 FL (81-99); MPV 11.4 FL (7.4-10.4); RBC 2.81 XMIL (4.2-5.4); RDW 18.7 % (11.5-14.5); WBC 5.26 X1000 (4.8-10.8)
[2019-06-10 06:58] LABS: CALCIUM 7.4 mg/dL (8.8-10.2); CREATININE 1.3 mg/dL (0.5-0.9); POTASSIUM 4.5 mmol/L (3.5-5.1)
[2019-06-10] MEDS: KEPPRA PO SCH ×2 (08:33→20:52)
[2019-06-10] MEDS: TUMS PO SCH ×3 (08:34→17:29)
[2019-06-10] MEDS: ZYLOPRIM PO SCH (08:34)
[2019-06-10] MEDS: THERA M PLUS PO SCH (08:34)
[2019-06-10] MEDS: FOLIC ACID PO SCH (08:34)
[2019-06-10] MEDS: MIRALAX PO SCH (09:27)
[2019-06-10] MEDS: DULCOLAX PR SCH (09:27)
--- NOTE | 2019-06-10 14:13 | PROGRESS NOTE ---
DATE: 06/10/2019 INTERVAL HISTORY: No acute events overnight. She did have a bowel movement which did not look bloody. She is feeling better. Her right shoulder movement is getting better as well. OBJECTIVE: Vital Signs: Temperature 99 degrees, pulse 89, respiratory 16, blood pressure 120/74, saturating 100% on room air. General: Does not appear in any acute distress. HEENT: Poor dentition. Oral cavity is moist. Lungs: Air entry bilaterally equal. No wheeze, rhonchi, or crackles. Cardiovascular: S1, S2 normal. No murmur, rub, or gallop. Abdomen: Soft. Active bowel sounds. Extremities: No lower extremity edema. Neurologic: She is alert and oriented x3. LABORATORY DATA: Labs suggestive of stable hemoglobin. Resolution of thrombocytopenia. Elevated chloride. Low bicarbonate. Stable chronic kidney dysfunction. Normalization of magnesium. ASSESSMENT AND PLAN: 1. Gastrointestinal bleed with use of aspirin, prednisone, and occasionally ibuprofen with acute blood loss anemia Status post 2 PRBCs for acute blood loss anemia. Her bleeding has stopped. I will resume her aspirin and follow up with blood count tomorrow considering her recent stroke, and I will follow up with final gastroenterology recommendation. 2. Hypocalcemia with vitamin D deficiency and Hypomagnesemia.Continue Vitamin D, continue Tums and vitamin D. 3. History of cerebrovascular accident x2 in May 2019 affecting left cerebellum, status post right-sided upper and lower extremity weakness. The details of stroke events are still pending. Resume patient's aspirin and high-dose atorvastatin considering her recurrent stroke. I will appreciate Gastroenterology recommendation. 4. Chronic kidney disease stage 3 appears to be stable; continue allopurinol for gout; folic acid 4 macrocytic anemia; levetiracetam for history of seizures; iron with multivitamin for chronic anemia; omeprazole b.i.d. for suspected GI bleed; Percocet for chronic pain; MiraLAX for constipation. 5. Disposition: If patient's hemoglobin is stable and she does not have any more bleed, my plan is to discharge her home on aspirin and proton pump inhibitors b.i.d. with outpatient Gastroenterology followup. Plan of care discussed with her. I will also involve oncology social work to see if we could set up home physical therapy. Her questions have been answered. cc: MD DONOVAN Boyer
[2019-06-10] MEDS: ASPIRIN PO SCH (16:00)
[2019-06-10] MEDS: DESYREL PO PRN (20:52)
[2019-06-10] MEDS ORDERED: LIPITOR PO SCH (21:00)
[2019-06-11] MEDS: PERCOCET-5 PO PRN (00:38)
[2019-06-11] MEDS: MIRALAX PO SCH ×2 (02:24→10:51)
[2019-06-11] MEDS: DULCOLAX PR SCH ×2 (02:24→10:51)
[2019-06-11] MEDS: PRILOSEC PO SCH ×2 (05:43→06:55)
[2019-06-11 07:09] LABS: CALCIUM 8.3 mg/dL (8.8-10.2); CREATININE 1.7 mg/dL (0.5-0.9); POTASSIUM 4.4 mmol/L (3.5-5.1)
[2019-06-11 07:13] LABS: HEMATOCRIT 28.5 % (37.0-47.0); HEMOGLOBIN 9.1 g/dL (12.0-16.0); MCH 32.6 PG (27-31); MCHC 31.9 g/dL (33-37); MCV 102.2 FL (81-99); MPV 11.5 FL (7.4-10.4); RBC 2.79 XMIL (4.2-5.4); RDW 18.6 % (11.5-14.5); WBC 4.9 X1000 (4.8-10.8)
[2019-06-11] MEDS: ZYLOPRIM PO SCH (10:53)
[2019-06-11] MEDS: FOLIC ACID PO SCH (10:53)
[2019-06-11] MEDS: ASPIRIN PO SCH (10:53)
[2019-06-11] MEDS: KEPPRA PO SCH (10:53)
[2019-06-11] MEDS: TUMS PO SCH (10:53)
[2019-06-11] MEDS: THERA M PLUS PO SCH (10:54)
[2019-06-11 12:05] VITALS: BP 123/80
--- NOTE | 2019-06-12 07:41 | DISCHARGE SUMMARY ---
ADMISSION DATE: 06/07/2019 DISCHARGE DATE: 06/11/2019 DISCHARGE DISPOSITION: Home. The patient does not have insurance so she could not qualify for rehab or home physical therapy. Prescription for outpatient physical therapy has been provided to her. She is going to home with her mother, and from there she would probably go back to her own home in [place]. DISCHARGE CONDITION: Hemodynamically stable. She is eating okay. She has had bowel movements without any blood. Her hemoglobin is stable despite being on aspirin. DISCHARGE DIAGNOSES: 1. Acute Gastrointestinal bleed on aspirin, prednisone, and occasional ibuprofen use. 2. Acute blood loss anemia requiring 2 units of blood transfusion. 3. Hypocalcemia. 4. Vitamin D deficiency. 5. Moderate-Severe protein energy malnutrition OTHER DIAGNOSES: 1. Recent history of CVA at least affecting left cerebellar hemisphere. The other records from [facility] were pending. 2. Chronic kidney disease stage 3. 3. Prior history of alcohol abuse. 4. Severe protein energy malnutrition. 5. History of hyperlipidemia. 6. History of chronic anemia. 7. Chronic gastroesophageal reflux disease. 8. Current episodes of hypokalemia and hypomagnesemia. 9. Essential hypertension. DISCHARGE MEDICATIONS: 1. Aspirin 81 mg daily. 2. Folic Acid 1 mg daily. 3. Keppra 750 mg b.i.d. for history of seizures. 4. Multivitamin 1 tablet daily. 5. Acetaminophen with codeine 3 mg every 6 hours as needed. 6. Allopurinol 100 mg daily. 7. Atorvastatin 40 mg at nighttime. 8. MiraLAX 17 g daily. 9. Nexium 40 mg b.i.d. until 07/01 and then daily. 10. Calcium carbonate 500 mg t.i.d. 11. Vitamin D 11678 units every 7 days 3 capsules. CONSULTATION DURING HOSPITAL ADMISSION: Gastroenterology, Dr. Vitale. VITALS: At the time of discharge, temperature 98.9 degrees, pulse 88, respiratory 17, blood pressure 120/80 and saturating 100% on room air. PHYSICAL EXAMINATION: General: Appears cachectic not in any acute distress. HEENT: Oral cavity is moist. Lungs: Air entry bilaterally equal. No wheeze, rhonchi, or crackles. Heart: Normal. No murmur or gallop. Abdomen: Soft, nontender. Active bowel sounds. Extremities: No lower extremity edema. Neurologic: She is alert and oriented x3. She does have residual right upper and right lower extremity weakness as compared to left upper and left lower extremity with power of about 3 to 4 on 5 on right upper and lower extremity shoulder, hip, knee, and ankle joints. Sensations are intact. She does not have any obvious facial droop. She is able to walk using a walker. SIGNIFICANT LABS AT HOSPITAL ADMISSION AND DISCHARGE: Her WBC was 43394 on admission which she was 4.9 at discharge. Her hemoglobin was 6.2 on admission after blood transfusion. At discharge, it was 9.1. Her platelet was 172,000. She did have calcium of 6.1 on admission which increased to 8.3 at the time of discharge. Her BUN is 14, creatinine of 1.7, GFR of 38. She does have potassium of 4.4, which increased from 3 at the time of presentation. Urinalysis did not have any toxic drugs detected. Stool occult blood test was surprisingly negative. Microbiology did not have any growth. IMAGING: Head CT on admission for stroke-like symptoms did not have acute intracranial pathology. There was no hemorrhage or mass effect. Brain MRI on 06/08/2019 did not detect any evidence of intracranial hemorrhage, mass effect of midline shift or hydrocephalus. There are no areas of restricted diffusion or evidence of acute infarct without any abnormal enhancement. However, she did have a report from [facility] where she was identified with left cerebellar stroke according to report. Echocardiogram had ejection fraction of 60%-65% without any intracranial thrombus. Shoulder x-ray did not have any acute bony disease. HOSPITAL COURSE SUMMARY: Ms. Alcaraz is a 49-year-old lady with past medical history of recent hospital admission for stroke affecting right upper and lower extremity. She was in [facility] for that for about 2 weeks in April of 2019 who came in with chief complaints of numbness in the right arm and right leg and bloody bowel movements since morning. In the emergency room, she was hemodynamically stable and head CT did not detect any acute infarct. However, her hemoglobin was down to 6.1. Apparently, patient had been taking aspirin for stroke, prednisone for unclear indication, and she has also been taking ibuprofen for as needed shoulder pain. It was thought that could have caused her bloody bowel movement though the fecal occult blood test was negative. By the time, I examined the patient she did not have any bloody bowel movement. The patient was admitted for further management, was resuscitated with intravenous fluids and was given 2 units of blood transfusion following which her hemoglobin had increased. Gastroenterology was consulted, but considering her hemoglobin had already increased, no EGD or colonoscopy was performed. Her ibuprofen and prednisone were held and she was started back on aspirin, which she was tolerating okay. While inside the hospital, she was also treated for multiple electrolyte abnormalities including hypomagnesemia, hypocalcemia, vitamin D deficiency, and hypokalemia. Her right- sided shoulder pain and numbness were thought to be related to her recent history of stroke as the MRI did not detect any acute pathology. In fact, MRI did not detect any stroke on this admission, though some of the records from the [facility] did detect she did have left cerebellar stroke a month ago. Shoulder x-ray did not detect an acute bony pathology and her strength was returning better. She was able to move her shoulder better as it was thought related to a musculoskeletal pain. At the time of discharge, she was hemodynamically stable. She was using a walker, and with that she was able to walk. However, the patient did not have insurance, and we could not send her to rehab. She could not get home physical therapy so it was decided to give her prescription of outpatient physical therapy. At the time of discharge, the patient was hemodynamically stable and more than 30 minutes were spent in discharging this patient. Outpatient physical therapy script was given to her. cc: MD DONOVAN Boyer
== END 2019-06-11 15:27 | disposition home or self-care (01) | DRG 377 ==
LOC: P.ED 08:37 → SUATTDRO 13:32 → P.MEDSURG 13:32 → 4N 15:37
PROVIDERS: ADMIT Internal Medicine; ATTEND Internal Medicine

== ENCOUNTER 2019-08-11 19:16 | Inpatient (IN) ==
[2019-08-11] MEDS ORDERED: ASPIRIN PO ONE (19:37)
--- NOTE | 2019-08-11 19:46 | EKG Report ---
Test Performed on : 08/11/2019 7:35:29 PM Test Reason : chest pain Blood Pressure : / mmHG Vent. Rate : 091 BPM Atrial Rate : 091 BPM P-R Int : 180 ms QRS Dur : 066 ms QT Int : 362 ms P-R-T Axes : 074 040 083 degrees QTc Int : 445 ms Normal sinus rhythm. Normal ECG When compared with ECG of 07-JUN-2019 09:28, (Unconfirmed) No significant change was found Unconfirmed Result
--- NOTE | 2019-08-11 20:39 | Diag Imaging Result Doc PS360 ---
CT HEAD W/O CONTRAST - 08/11/2019 INDICATION: stroke like COMPARISON: 06/07/2019 FINDINGS: The ventricles and sulci are normal in size and contour. No intracranial mass or hemorrhage. The skull is intact. The sinuses mastoids and middle ears are clear. IMPRESSION: Negative exam. This exam was performed using automated exposure control, adjustment of mA or kV according to patient size, and/or use of iterative reconstruction technique Electronically signed by Benedict Brantley 08/11/2019 8:37 PM
--- NOTE | 2019-08-11 20:41 | Diag Imaging Result Doc PS360 ---
CHEST-2 VIEWS - 08/11/2019 INDICATION: cp COMPARISON: 06/07/2019 FINDINGS: The lungs are normally expanded and clear. Heart size and mediastinal contours are normal. No pneumothorax or pleural effusion. IMPRESSION: Negative exam. Electronically signed by Benedict Brantley 08/11/2019 8:39 PM
[2019-08-11] MEDS ORDERED: KEPPRA 1,000 MG in NS 100 ML IV ONE (20:47)
[2019-08-11 21:44] LABS: BASO# 0.02 X1000 (0.0-0.2); BASO% 0.3 % (0.0-0.8); EOS# 0.21 X1000 (0.0-0.7); EOS% 2.8 % (0.0-10.0); HEMATOCRIT 31.6 % (37.0-47.0); HEMOGLOBIN 9.5 g/dL (12.0-16.0); IMM GRAN# 0.01 X1000 (0.0-0.04); IMM GRAN% 0.1 % (0.0-0.5); LYMPH# 3.71 X1000 (1.2-3.4); LYMPH% 49.5 % (20.5-51.1); MCHC 30.1 g/dL (33-37); MCV 96.3 FL (81-99); MONO# 0.54 X1000 (0.11-0.59); MONO% 7.2 % (1.7-9.3); MPV 11.4 FL (7.4-10.4); NEUT# 3.01 X1000 (1.4-6.5); NEUT% 40.1 % (42.2-75.2); PLT 208 X1000 (130-400); RBC 3.28 XMIL (4.2-5.4); RDW 13.7 % (11.5-14.5)
[2019-08-11] MEDS ORDERED: KEPPRA PO ONE (21:53)
[2019-08-11 22:14] LABS: INR 0.96; PROTIME 13.3 Seconds (11.0-16.0)
[2019-08-11 22:15] LABS: PTT 30.3 Seconds (22.3-41.8)
[2019-08-11 22:24] LABS: ALBUMIN 4.3 g/dL (3.5-5.0); CALCIUM 9.6 mg/dL (8.8-10.2); CREATININE 1.6 mg/dL (0.5-0.9); POTASSIUM 4.2 mmol/L (3.5-5.1); TOTAL BILIRUBIN 0.2 mg/dL (0.20-1.00); TOTAL PROTEIN 7.2 g/dL (6.3-8.3)
[2019-08-12] MEDS ORDERED: TYLENOL PO PRN (05:25)
[2019-08-12] MEDS ORDERED: MORPHINE IV ONE (05:26)
[2019-08-12] MEDS ORDERED: ZOFRAN IV PRN (05:26)
[2019-08-12 05:36] LABS: BILIRUBIN URINE NEGATIVE (NEGATIVE); BLOOD URINE NEGATIVE (NEGATIVE); COLOR STRAW; GLUCOSE URINE NEGATIVE (NEGATIVE); KETONE URINE NEGATIVE (NEGATIVE); LEUKOCYTES URINE NEGATIVE (NEGATIVE); NITRITE URINE NEGATIVE (NEGATIVE); PROTEIN URINE NEGATIVE (NEGATIVE); SP GRAVITY URINE 1.011; TURBIDITY URINE CLEAR (CLEAR); URINE SOURCE CLEAN CATCH; UROBILINOGEN URINE NORMAL (NORMAL)
[2019-08-12 05:37] LABS: UR EPITHELIAL CELLS <10 /HPF (<10); URINE BACTERIA NEGATIVE /HPF; URINE RBC <10 /HPF (<10); URINE WBC <10 /HPF (<10)
[2019-08-12 05:53] LABS: UR AMPHETAMINES QUAL NONE DETECTED (NONE DETECT); UR BARBITUATES QUAL NONE DETECTED (NONE DETECT); UR BENZODIAZEPIN QUAL NONE DETECTED (NONE DETECT); UR CANNABINOIDS QUAL NONE DETECTED (NONE DETECT); UR COCAINE QUAL NONE DETECTED (NONE DETECT); UR METHADONE QUAL NONE DETECTED (NONE DETECT); UR OPIATES QUAL NONE DETECTED (NONE DETECT); UR OXYCODONE QUAL NONE DETECTED (NONE DETECT); UR PCP QUAL NONE DETECTED (NONE DETECT)
[2019-08-12] MEDS ORDERED: NS 1,000 ML IV SCH (06:45)
--- NOTE | 2019-08-12 06:55 | HISTORY AND PHYSICAL ---
ADDENDUM: Patient seen and examined by myself. Full note dictated and discussed with nurse practitioner. [facility] and was transferred to [facility]. She initially came in with chest pain, left arm pain, and shortness of breath. Also complained of a right-sided frontal headache, dizzy with walking, numbness on the right side of her face. She apparently had missed her Keppra and had a seizure, and they reported that she had a stroke in May that affected both sides of her body. Her labs are essentially normal. Her creatinine is elevated at 1.6 which is slightly above her apparent baseline of 1.3 to 1,.5 and alkaline phosphatase is minimally elevated. We are going to admit her to the hospital, check a carotid ultrasound, recheck her labs, place her on IV fluids for now, and follow her kidney function. Blood pressures appear to be relatively controlled. cc: Steve Harris MD
[2019-08-12 07:54] LABS: BASO# 0.02 X1000 (0.0-0.2); BASO% 0.3 % (0.0-0.8); EOS# 0.26 X1000 (0.0-0.7); EOS% 4.1 % (0.0-10.0); HEMATOCRIT 31.4 % (37.0-47.0); HEMOGLOBIN 9.5 g/dL (12.0-16.0); LYMPH# 3.09 X1000 (1.2-3.4); LYMPH% 48.4 % (20.5-51.1); MCH 29.6 PG (27-31); MCHC 30.3 g/dL (33-37); MCV 97.8 FL (81-99); MONO# 0.56 X1000 (0.11-0.59); MONO% 8.8 % (1.7-9.3); MPV 11.3 FL (7.4-10.4); NEUT# 2.45 X1000 (1.4-6.5); NEUT% 38.4 % (42.2-75.2); PLT 227 X1000 (130-400); RBC 3.21 XMIL (4.2-5.4); RDW 13.6 % (11.5-14.5); WBC 6.38 X1000 (4.8-10.8)
[2019-08-12 08:14] LABS: CALCIUM 9.1 mg/dL (8.8-10.2); CREATININE 1.5 mg/dL (0.5-0.9); MAGNESIUM 1.9 mg/dL (1.5-2.7); POTASSIUM 4.3 mmol/L (3.5-5.1)
[2019-08-12] MEDS ORDERED: ASPIRIN PO SCH (09:00)
[2019-08-12] MEDS ORDERED: D50W SYRINGE IV PRN (09:26)
--- NOTE | 2019-08-12 10:38 | Diag Imaging Result Doc PS360 ---
ABDOMEN FLAT/UPRIGHT - 08/12/2019 INDICATION: Abd. Pain/Distention COMPARISON: 01/11/2016 FINDINGS: Stable cholecystectomy clips. Stable IUD in the pelvis. Stable dystrophic calcifications throughout the pancreas compatible with significant chronic pancreatitis. No bowel obstruction or free air. IMPRESSION: No change from prior. Electronically signed by Benedict Brantley 08/12/2019 10:36 AM
--- NOTE | 2019-08-12 10:45 | Diag Imaging Result Doc PS360 ---
US ABDOMEN-COMPLETE - 08/12/2019 INDICATION: Abd. Pain/ Distention COMPARISON: CT from 06/07/2019 FINDINGS: The gallbladder is surgically absent. There is no biliary dilation. The liver is normal. Common bile duct measures 6.7 mm. The pancreas is hyperechogenic with calcifications. No fluid collections. The spleen is normal. Both kidneys are slightly hyper echogenic which may suggest chronic medical renal disease. No hydronephrosis. Renal sizes are normal. The right kidney measures 10.4 x 5.1 x 4 cm. The left kidney measures 10.6 x 5.1 x 4.8 cm. Aorta, IVC, and main portal vein are patent. IMPRESSION: 1. Chronic pancreatitis with dystrophic calcification. 2. Hyper echogenic kidneys suggesting chronic medical renal disease. Electronically signed by Benedict Brantley 08/12/2019 10:43 AM
[2019-08-12] MEDS: KEPPRA PO SCH ×2 (11:00→20:17)
[2019-08-12] MEDS: PRILOSEC PO SCH ×2 (11:00→20:17)
--- NOTE | 2019-08-12 11:26 | HISTORY AND PHYSICAL ---
PRIMARY CARE PROVIDER: The patient does not have a local primary care provider, though she does see Dr. Mauricio in [place], [place]. CHIEF COMPLAINT: Chest pain. HISTORY OF PRESENT ILLNESS: Ms Alcaraz is a 49-year-old female who presented to [facility] with initial complaints of chest pain, left arm pain which she described was in the axilla area, shortness of breath, dizziness, a right-sided frontal headache with reported right-sided worsening weakness and numbness. She also reports that she had a seizure today secondary to reports that she missed a dose of her Keppra. The patient does have a history of CVAs. She reports her previous stroke did affect her left side of her body and that she had a stroke a few months ago from what I understand was in May that affected both sides of her body. The patient at this time is still reporting a headache. She denies any visual disturbances. She is reporting that she is having some right-sided weakness and numbness in her right hand and right foot. There is no facial droop noted. There was no arm drift noted. She is reporting abdominal pain as well. Her abdomen does appear to be distended. She had generalized tenderness noted. She denies any vomiting, though he did report some nausea. She denies any diarrhea to me and did report her last bowel movement was yesterday. She has been reporting that she has been having black stools and other than her reported numbness in her right foot and right hand she denies any other pain, numbness, tingling, or swelling in extremities. The patient does have a history of alcohol abuse though at this time she is denying any current alcohol use. She states that she has not drank in approximately 5 months. Upon evaluation in the ER at [facility], the patient's CT head without contrast showed no acute abnormalities. Chest x-ray showed no acute abnormalities as well. EKG showed normal sinus rhythm at a rate of 91. Laboratory results showed some mild anemia with a hemoglobin 9.5, hematocrit 31.6 though this has improved from her most recent labs. She does have what appears to be some chronic kidney disease with a slight elevation of her creatinine at baseline. Her urinalysis was negative for any signs of infection. Urine drug screen was negative as well. The patient has been transferred to [facility] for further treatment and evaluation of possible CVA and seizure disorder. REVIEW OF SYSTEMS: A 14 point review of systems was conducted with the patient. All were negative except for pertinent positives mentioned above HPI. PAST MEDICAL HISTORY: 1. Cerebrovascular accident x2 with the most recent being in May 2019 for which she states that this did affect both sides of her body, though she reportedly does have some right-sided residual weakness from a previous stroke as well. 2. Gout. 3. Hypertension. 4. Anxiety. 5. Depression. 6. Seizures. 7. History of gastrointestinal bleeding. 8. History of pancreatitis. 9. History of alcohol abuse. PAST SURGICAL HISTORY: 1. Cholecystectomy. 2. section. 3. Sinus surgery. 4. Left eye/facial surgery secondary to trauma. 5. Recent esophagogastroduodenoscopy and colonoscopy was performed within the last few months. SOCIAL HISTORY: The patient states that she is a resident of [place], [place] and usually goes to [facility] though her children do live here and she did return most recently for the of her ex- to stay with her kids and has not returned to [place] since that time. Though, she does not have a family doctor here or neurologist. The patient still does currently smoke half pack of cigarettes per day and has smoked for over 20 years. She does have a history of alcohol abuse in the past. She did previously drink gin every other day for 20+ years, though she states she has not had any alcohol in 5 months. She denies any illicit drug use. FAMILY HISTORY: On her maternal side, there is a history of lung cancer and stroke. On her paternal side, there is a history of breast cancer and gastric cancer. ALLERGIES: Penicillin. HOME MEDICATIONS: 1. Norvasc 10 mg p.o. daily. 2. Aspirin 81 mg p.o. daily. 3. Lipitor 40 mg p.o. at bedtime. 4. Vitamin D3 50,000 units p.o. q 7 days as directed. 5. Nexium 40 mg p.o. b.i.d. 6. Keppra 750 mg p.o. b.i.d. 7. Altace 1.25 mg p.o. daily. DIAGNOSTIC DATA/LABORATORY RESULTS: White blood cell count is 7500, hemoglobin 9.5, hematocrit 31.6, platelet count is 208,000. PT 13.3, INR 0.96, PTT is 30.3. Sodium 147, potassium 4.2, chloride 114, serum bicarb 15, BUN 29, creatinine 1.6, GFR 34, glucose 88, calcium 9.6. Liver function tests are within normal limits. Her alkaline phosphatase is slightly elevated at 132. CK 74, troponin less than 0.01. ProBNP is 287. Urinalysis was obtained via clean catch, was negative for protein, glucose, ketones, blood, nitrites, leukocytes, white blood cells, or bacteria. Urine drug screen was negative. EKG showed normal sinus rhythm at a rate of 91 with a QTc of 445. CT of the head did not show any acute intracranial abnormality. This is per Radiology. Chest x-ray did not show any acute abnormalities as well. This is per Radiology. Pending diagnostic studies at this time include an ultrasound abdomen, MRI of the brain without contrast, abdomen flat and upright and Hemoccult stool. PHYSICAL EXAMINATION: VITAL SIGNS: Temperature 98.3 degrees, heart rate 78, respirations 20, blood pressure is 129/67, oxygen saturation is 100% on room air. GENERAL: Ms. Alcaraz is a 49-year-old female. She was resting in the inpatient bed. She was in no acute distress. She was resting with her eyes closed upon my initial arrival to her room but was easily arousable with verbal stimulation. She is alert and oriented to person, place, time, and situation. HEENT: Head is atraumatic, normocephalic. Pupils are equal, round, reactive to light, were 3 mm bilaterally and brisk. Oral mucosa is moist. Oropharynx clear. NECK: Supple. Trachea midline. CARDIOVASCULAR: Patient has S1-S2 present. No murmurs, gallops, rubs appreciated. Regular rate and rhythm. PULMONARY: Patient has symmetrical chest expansion bilaterally. Lung sounds are clear to auscultation in bilateral full durbin. ABDOMEN: Soft though did appear to be distended. She did have generalized tenderness noted upon palpation. Bowel sounds were present in all 4 quadrants, were normoactive. EXTREMITIES: No cyanosis or edema noted. Pulse, motor, and sensory were intact in all extremities. Radial and pedal pulses were 2+ bilaterally. INTEGUMENTARY: The patient's skin color is normal for her race, is dry and intact. NEUROLOGICAL: Patient is alert and oriented to person, place, time, and situation. She is able to move all extremities. She does have generalized weakness noted. She did have equal hand grasps and muscle strength in bilateral upper extremities though in bilateral lower extremities she did appear to be more awake on her left side than the right. The patient is reporting some numbness in her right foot and right hand. She has no facial droop noted. No arm drift noted. She is denying any visual disturbances. The EOMS were intact. She also did appear to have some horizontal nystagmus noted as well. ASSESSMENT AND PLAN: 1. Possible cerebrovascular accident. For further evaluation of this we will place orders for an MRI without contrast performed on Tuesday. We will order a carotid ultrasound. The patient did just recently have an echocardiogram performed just in June 2019. We will not repeat this at this time given that. We will place her on her daily aspirin. We will continue her Lipitor. We have placed a consult with Dr. Hernandez with Neurology. We will await his evaluation and further recommendations for management. 2. Seizure disorder. The patient reportedly had a seizure prior to coming to the ER yesterday. She reported missed a dose of her Keppra. She was given a dose of IV Keppra in the ER. We will continue her on her regularly prescribed Keppra 700 mg p.o. b.i.d. She has been placed on seizure precautions. The patient has denied any recent alcohol use. We will continue to follow. 3. History of hypertension. Given that the patient is here for possible rule out of stroke and that her blood pressure has been slightly borderline low throughout the night a couple of times, we will hold her antihypertensive at this time. We will allow for some permissive hypertension. We will continue to monitor closely and implement antihypertensives if necessary. 4. Acute on chronic kidney disease. The patient has a baseline creatinine of 1.3 to 1.5 recently. She has had a slight increase in this. We will implement some gentle intravenous hydration. We will monitor this closely. We will avoid nephrotoxic medications and renally dose medicines as necessary. 5. Abdominal pain and abdominal distention. The patient's abdomen does appear to be distended. She did report generalized tenderness upon palpation. She denied any diarrhea to me and did report she had a bowel movement yesterday, though she also reported that she has been having some melena as well. She denies any vomiting, though was reporting some slight nausea at the time of my examination, though she stated this was secondary to her abdominal pain. For further evaluation of this we will place her n.p.o. at this time. We will obtain a flat and upright x-ray of her abdomen as well as an ultrasound abdomen as well. We will await these results and continue to follow. 6. Deep vein thrombosis prophylaxis provided with sequential compression devices. PLAN: The patient has been placed on the medical floor telemetry. She will have vital signs q.4 hours. We will also do neurological checks q.4 hours as well. She has been placed on seizure and aspiration precaution. She will be NPO until we have the results of her abdominal ultrasound and flat and upright abdomen. Further orders and recommendations pending hospital course, diagnostic studies, and physician evaluation. Dictated by AVINASH Medrano for Steve Harris MD cc: Steve Harris MD
--- NOTE | 2019-08-12 14:43 | PROGRESS NOTE ---
DATE: 08/12/2019 SUBJECTIVE: This morning, Mr. Alcaraz refers to be doing well. Ms. Alcaraz is a 49-year-old, female who used to be living somewhere in [place]. I understand early June, she had a stroke that left her with mild left side hemiparesis and she is currently using a cane. I am not sure about the timing. However, on 06/07/2019, she seems to have also been here. An MRI at the time was completely negative. The patient has a discharge summary on 06/11/2019. She was sent to [facility] yesterday because of shaking and generalized pains. She thinks that she had seizures that lasted for about 10 minutes, according to the mother. After it ceased, there was really not any postictal status. However, when they said that they needed to send her to the ER, she had another seizure. That is when she was sent. She was evaluated over there and was brought to [facility] for higher level of care and for neurology evaluation. Over here, she has not had any seizures but she has been very adamant and requesting a lot of pain medications from the nurses. According to her, she was on some pain medications at home. However, her home medications do not show any pain medications. OBJECTIVE: Current Vital Signs: Blood pressure is 105/68, pulse of 93, respirations are 19, temperature is 97.6 degrees. General Examination: Ms. Alcaraz is a 49-year-old, female. She is in bed. No distress. HEENT: Mucosa is pink and moist. Anicteric. Acyanotic. Neck: Supple. Chest: Clear to auscultation. No crepitations. No rhonchi. Cardiovascular: Regular rate and rhythm. GI: Abdomen is soft, nontender. Extremities: No pedal edema. RAG BALER: The patient is awake, alert, oriented. She was able to move all her extremities. I was really not able to elicit any focal deficit. Laboratory Data: CBC shows hemoglobin of 9.5. Rest of CBC is normal. Chemistry is also fairly unremarkable. Creatinine is 1.5 but the patient has a baseline creatinine of about 1.3 since early 2013. Imaging Studies: On admission, a CT scan of the head was unremarkable. A chest x-ray is negative. Ultrasound of the abdomen shows chronic pancreatitis and dystrophic calcification, hyperechogenic kidneys suggesting chronic medical renal disease. A KUB shows no abnormality. ASSESSMENT: 1. Episode of shaking and unresponsiveness, questionable for seizures. Event description not quite convincing. The patient is currently under seizure precautions. She has been started back on her Keppra. There has not been any witnessed seizures in the hospital. There is a plan for MRI and for a neurology consult tomorrow. 2. History of cerebrovascular accident. As I said, MRI on 06/07/2019 was unremarkable for any stroke. 3. Acute on chronic kidney disease, noted. 4. Generalized pains. Presumably, Ms. Alcaraz is on some form of narcotics at home for some chronic pain. 5. Previous history of alcohol abuse with chronic alcohol-induced pancreatitis, noted. 6. Tobacco use and abuse. Patient has been counseled. cc: Justin Ramirez MD MTDD
[2019-08-12] MEDS: NORCO-5 PO PRN ×2 (15:44→21:40)
[2019-08-12] MEDS: ROBAXIN PO SCH ×2 (15:46→20:18)
[2019-08-12] MEDS ORDERED: LIPITOR PO SCH (21:00)
[2019-08-13] MEDS: NORCO-5 PO PRN (03:30)
[2019-08-13 05:15] VITALS: BP 110/64
[2019-08-13 08:19] LABS: ALBUMIN 3.5 g/dL (3.5-5.0); CALCIUM 8.9 mg/dL (8.8-10.2); CREATININE 1.5 mg/dL (0.5-0.9); PHOSPHORUS 5.6 mg/dL (2.7-4.5); POTASSIUM 4.3 mmol/L (3.5-5.1)
[2019-08-13 08:33] LABS: TSH 0.54 uIUmL (0.27-4.20)
--- NOTE | 2019-08-14 14:13 | DISCHARGE SUMMARY ---
ADMISSION DATE: 08/11/2019 DISCHARGE DATE: 08/13/2019 DISPOSITION: The patient actually signed AMA. DATE OF LEAVING AGAINST MEDICAL ADVICE: 08/13/2019. CONSULTATIONS DURING ADMISSION: 1. Neurology was consulted. However, patient left before they were even able to see her. MRI was also ordered. The patient declined to do that. IMAGING STUDIES: 1. A CT scan of the head without contrast was normal. 2. A chest x-ray on presentation was negative. 3. Ultrasound of the abdomen showed chronic pancreatitis and dystrophic calcification. Chronic medical renal disease. 4. A KUB showed no changes. ADMISSION DIAGNOSES: 1. Possible cerebrovascular accident 2. Seizure disorder. 3. Hypertension. 4. Abdominal pain and abdominal distention. DIAGNOSES AT TIME OF DISCHARGE: 1. Episode of shaking and unresponsiveness, questionable for seizures. The description of the event was not quite convincing. Neurology was consulted however, Ms. Alcaraz left against medical advice before Neurology could even come and evaluate her. 2. History of cerebrovascular accident. An MRI done on 06/07/2019 was unremarkable. A new MRI was ordered to rule out any potential stroke, but the patient declined to wanting to do it. 3. Acute on chronic kidney disease. 4. Generalized pains, questionable chronic pain syndrome. Ms. Alcaraz was persistently requesting for narcotics to control her pains during the hospital course. She left against medical advice apparently because according to her her pain was not very well managed. 5. History of alcohol abuse with chronic alcohol-induced pancreatitis. 6. Tobacco use and abuse. 7. No discharge medications since patient signed against medical advice. PRESENTING COMPLAINT: Chest pain. HISTORY OF PRESENTING COMPLAINT: Ms. Alcaraz is a 49-year-old female with history of CVA x2 in May and June of 2019 came to the emergency department because the mother found her in the back of her car shaking which they thought was seizures so she was brought into the emergency department, and was admitted to rule out seizure disorders. HOSPITAL COURSE: Ms. Alcaraz was admitted to the medical floor. Initial workup was unremarkable. Her laboratory work up did reveal a normocytic anemia. She was non gap metabolic acidosis and renal failure. She was under neuro observation and seizure precautions. Her Keppra was re- initiated. During the hospital course, she did not have any seizures. She was very very adamant, and every now and then requesting for pain medications. She left this morning against medical advice because apparently her pains were not being met, and she had to be called multiple times for anything at all to be done to her by the nursing staff. At the time of discharge, her vitals were fairly stable. Blood pressure was 110/64, pulse of 73, respirations 19, and temperature was 98.6 degrees. When I saw her this morning, she was sitting at the edge of the bed. She seems to be in a very stable condition. She left AMA despite the multiple pieces of advice, and recommendations that she needed to be seen by Neurology before she left. She still left not withstanding. cc: Justin Ramirez MD
== END 2019-08-13 09:15 | disposition left against medical advice (07) | DRG 101 ==
LOC: P.ED 19:16 → SUATTDRO 22:35 → 3N 22:35
PROVIDERS: ATTEND Internal Medicine

== ENCOUNTER 2019-12-15 17:09 | Inpatient (IN) ==
--- NOTE | 2019-12-15 17:45 | PROVIDER DOCUMENTATION ---
HPI-General Adult - General Chief Complaint: Sinus Pain Stated Complaint: HEADACHE / RECTAL BLEEDING Time Seen by Provider: 12/15/19 17:26 Source: patient Allergies/Adverse Reactions: Patient Allergies Allergy/AdvReac Type Severity Reaction Status Date / Time Penicillins Allergy Intermediate RASH Verified 12/15/19 17:50 Home Medications: Home Medication List Medication Instructions Recorded Confirmed Last Taken Type Aspirin 81 mg PO DAILY 06/08/19 12/15/19 Unknown History Levetiracetam [Keppra] 750 mg PO BID 06/08/19 12/15/19 Unknown History ATORVAstatin [Lipitor] 40 mg PO HS tab 06/11/19 12/15/19 Unknown Rx Esomeprazole [Nexium] 40 mg PO BID #60 cap 06/11/19 12/15/19 Unknown Rx Amlodipine [Norvasc] 10 mg PO DAILY 08/12/19 12/15/19 1 Day Ago History ~08/11/19 Ramipril [Altace] 1.25 mg PO DAILY 08/12/19 12/15/19 1 Day Ago History ~08/11/19 - History of Present Illness -Gen Adult Nature of Presenting Problems: 49 yof presents with multiple complaints of weakness, body aches, CHARLES, sinus congestion, bright red rectal bleeding x 2 days. she reports it drips sometimes even without having a BM. Denies fever, chills, cough, sob. Location of Pain/Injury: reports: head Pain Radiation: reports: no radiation Quality of Pain: reports: aching Severity: reports: moderate Onset/Duration: reports: 2 days ago Timing: reports: still present Context/Activities at Onset: reports: none Modifying Factors: worse with: analgesics Associated Symptoms: reports: loss of appetite, sinus congestion/drainage, na usea, weakness Similar Symptoms Previously?: No Recently seen or treated by another doctor?: No Review of Systems - Adult - REVIEW OF SYSTEMS - ADULT Constitutional: reports: see HPI. denies: no symptoms reported, chills, fever, fatique, night sweats, weight gain, weight loss, other Eyes: reports: no symptoms reported. denies: see HPI, discharge, dry eyes, decreased vision, blurred vision, double vision, eye pain, redness, other Ears, Nose, Mouth & Throat: reports: see HPI, sinus problem. denies: no symptoms reported, ear discharge, ear pain, hearing loss, tinnitus, epistaxis, nose pain, loose teeth, mouth/dental pain, mouth swelling, hoarseness, throat pain, throat swelling, other Cardiovascular: reports: no symptoms reported. denies: see HPI, chest pain, e shelia, heart murmur, irregular heart rate, orthopnea, palpitations, poor circulation, PND, syncope, other Respiratory: reports: no symptoms reported. denies: see HPI, chronic cough, cough, dyspnea on exertion, excessive sputum production, hemoptysis, pleurisy, shortness of breath, wheezing, other Gastrointestinal: reports: see HPI, nausea, rectal bleeding. denies: no symptoms reported, abdominal pain, hematemesis, constipation, diarrhea, difficulty swallowing, frequent heartburn, poor appetite, vomiting, other Genitourinary: reports: no symptoms reported. denies: see HPI, dysuria, discharge, frequency, flank pain, frequent UTI's, hematuria, hesitency, incontinence, urinary retention, urgency, other Musculoskeletal: reports: muscle weakness. denies: no symptoms reported, see HPI, bone pain, back pain, frequent leg cramps, joint pain, joint swelling, muscle aches, neck pain, other Integumentary: reports: no symptoms reported. denies: see HPI, hives, hair loss, itching, mole changes, nail changes, rash, skin sores/ulcer, skin thickening, other Neurological: reports: no symptoms reported. denies: see HPI, ataxia, dizziness/vertigo, headache/migraines, loss of balance, numbness, paresthesia, seizure, slurred speech, syncope, tremors, other Psychiatric: reports: no symptoms reported. denies: see HPI, anxiety, anti- depressant use, alcohol/drug dependence, depression, emotional problems, insomnia, panic attacks, suicidal thoughts, other Endocrine: reports: no symptoms reported. denies: see HPI, change in skin pigment, excessive sweating, goiter, cold intolerance, heat intolerance, increased hunger, increased thirst, polyuria, other Hematologic/Lymphatic: reports: no symptoms reported. denies: see HPI, blood clots, easy bruising, low blood count, lymphedema, prolonged bleeding, swollen lymph nodes, transfusions, other Allergic/Immunologic: reports: no symptoms reported. denies: see HPI, allergic reactions, allergic rhinitis, asthma, eczema, food allergy, frequent infections, hay fever, hives, positive PPD, urticaria, other Past History - Adult - PAST MEDICAL HISTORY-ADULT Review of Records: reports: Nursing Assessment Review, Social history reviewed & non-contributory. Major Childhood Illnesses: reports: denies history Cardiovascular: reports: hyperlipidemia Respiratory: reports: asthma Gastrointestinal: reports: pancreatitis Obstetrical/Gynecological: reports: denies history Genitourinary: reports: kidney disease Musculoskeletal: reports: arthritis (gout) Neurological: reports: Seizures/Epilepsy Psychiatric: reports: anxiety Endocrine/Immune: reports: other (gout) Other Conditions: reports: denies history - PRIOR SURGERIES/PROCEDURES Surgical/Procedure History: reports: cholecystectomy, , other (sinus surgery) - IMMUNIZATION STATUS Childhood Immunizations: See Nurse Assessment Flu Vaccine: See Nurse Assessment - FAMILY HISTORY Family History: reviewed, not pertinent Physical Exam-General - PHYSICAL EXAM-ADULT Initial Vital Signs Reviewed: Yes - CONSTITUTIONAL General Appearance: alert, no apparent distress - EYES Eyes: PERRL/EOMI, pink conjunctivae - HEAD, EARS, NOSE, MOUTH & THROAT HENMT: normocephalic/atraumatic, moist mucous membranes, normal ENT inspection - NECK Neck: non-tender, full range of motion, supple, normal inspection - RESPIRATORY Respiratory: chest non-tender, lungs clear, normal breath sounds, no pleuratic chest pain, no respiratory distress, no accessory muscle use - CARDIOVASCULAR Cardiovascular: normal peripheral pulses, regular rate, rhythm, no edema, no gallop, no JVD, no murmur - GASTROINTESTINAL (ABDOMEN) Abdominal Exam: normal bowel sounds, non tender, soft, no organomegaly, no pulsatile mass - GENITOURINARY Hemoccult Exam: other (see lab) - LYMPHATIC Lymphatic: no adenopathy - MUSCULOSKELETAL Back Exam: normal inspection, no CVA tenderness, no vertebral tenderness Extremity: normal range of motion, non-tender Peripheral Pulses: radial (R): 2+, radial (L): 2+ - SKIN Integumentary: normal color, normal turgor, warm/dry - NEUROLOGIC Neurologic: grossly normal - PSYCHIATRIC Psych/Mental Status: normal mood/affect, oriented x 3 Progress - PLAN OF CARE/RESULTS Progress/Plan/Lab Results: Vital Signs - 8 hr 12/15/19 17:14 Pulse Rate 80 Respiratory Rate 18 Blood Pressure 139/79 O2 Sat by Pulse Oximetry 98 Orders Category Date Time Status SINUSES [RAD] Stat Exams 12/15/19 17:22 Ordered CBC WITH ELECTRONIC DIFF [HEME] Stat Lab 12/15/19 17:25 Uncollected COMPREHENSIVE METABOLIC PANEL [CHEM] Stat Lab 12/15/19 17:25 Uncollected Flu [INFLUENZA SCREEN PL] Stat Lab 12/15/19 17:41 Uncollected Stool [OCCULT BLOOD SCREENING] [STOOL] Stat Lab 12/15/19 17:25 Uncollected Result Diagrams: 12/15/19 20:53 12/15/19 18:26 - XRAY 1 XRAY Study: other (SINUSES) Impression: See EMR Report (EXAM: SINUSES HISTORY: sinus pain TECHNIQUE: Three views COMPARISON: None. FINDINGS: No sinus opacification. No air-fluid levels. No mucosal thickening. IMPRESSION: No sinusitis. Electronically signed by Min Culver 12/15/2019 6:26 PM 12/15/196 Interpreting Physician: Min Culver MD Dictated Date/Time: 12/15/191824 cc: eJanie Curtis; None,PCP) 2 XRAY Study: Chest Impression: See EMR Report ( EXAM: CHEST-2 VIEWS HISTORY: SEPSIS W/U TECHNIQUE: Two views COMPARISON: 08/11/2019 FINDINGS: The lungs are well expanded. The heart is not enlarged. The vessels are not distended. There are no infiltrates. No pleural effusions. IMPRESSION: No pneumonia Electronically signed by Min Culver 12/15/2019 8:44 PM 12/15/192043 Interpreting Physician: Min Culver MD Dictated Date/Time: 12/15/192042 cc: Jeanie Curtis; None,PCP) - CT/MRI 1 CT Study: Abdomen, Pelvis Impression: See EMR Report (EXAM: CT ABDOMEN/PELVIS W/O CONTRAST HISTORY: 22 WBC, RECTAL BLEEDING, PAIN TECHNIQUE: CT abdomen and pelvis without oral or intravenous contrast COMPARISON: 06/07/2019 FINDINGS: The gallbladder has been removed. There are many pancreatic calcifications. No inflammation about the pancreas. No pseudocyst. No splenomegaly. No focal hepatic abnormality identified on this noncontrasted exam. Normal adrenal glands. No renal stones. Slight distention to the upper right ureter, but no ureteral stones. Mild periureteral inflammation. No aortic aneurysm. Mild atherosclerosis. No bowel obstruction. There is fluid throughout the small bowel. No inflammation about the cecum. There are scattered colonic diverticula. The urinary bladder is mildly distended and appears normal. Intrauterine device appears in good position. No pelvic mass. IMPRESSION: 1.Chronic pancreatitis 2.Cholecystectomy 3.Colonic diverticulosis 4.Possible ureteritis This exam was performed using automated exposure control, adjustment of mA or kV according to patient size, and/or use of iterative reconstruction technique. Electronically signed by Min Culver 12/15/2019 8:12 PM 12/15/192011 Interpreting Physician: Min Culver MD Dictated Date/Time: 12/15/192007 cc: Jeanie Curtis; None,PCP) - CONSULTS/PCP/HOSPITALIST Notification #1 *Consult/PCP/Hospitalist*: Dr. Barber Time Discussed: 22:28 Consult Disposition: Admit Departure - Departure Date of Disposition Decision: 12/15/19 Time of Disposition Decision: 22:28 DIAGNOSIS: LUIS M (acute kidney injury), Vomiting, Anemia, GI bleed, UTI (urinary tract infection), Blood loss anemia Disposition: HOME 01 Certified Medical Emergency: Emergent Condition: Stable Referrals and Follow-Ups: None,PCP [Primary Care Provider] - - Critical Care Note This patient required my direct & personal management of CC.: No Attestation - Physician/ DAYANA Attestation Patient care was provided by Advanced Practice Provider:: Yes Advanced Practice Provider:: Jeanie Curtis Advanced Practice Provider documentation review:: The Mid-level provider documentation, treatment plan and medical decision making was reviewed by the physician who agrees with all treatment and medical decision making by the P. The physician spent face to face time with patient:: No Advanced Practice Provider documentation review:: Supervising physician onsite and consulted in the evaluation and care of this patient. The physician did not have a face to face encounter with the patient.
[2019-12-15 18:25] LABS: INFLUENZA A NEGATIVE (NEGATIVE); INFLUENZA B NEGATIVE (NEGATIVE)
--- NOTE | 2019-12-15 18:28 | Diag Imaging Result Doc PS360 ---
EXAM: SINUSES HISTORY: sinus pain TECHNIQUE: Three views COMPARISON: None. FINDINGS: No sinus opacification. No air-fluid levels. No mucosal thickening. IMPRESSION: No sinusitis. Electronically signed by Min Culver 12/15/2019 6:26 PM
[2019-12-15 18:32] LABS: BASO# 0.09 X1000 (0.0-0.2); BASO% 0.4 % (0.0-0.8); EOS% 1.3 % (0.0-10.0); HEMATOCRIT 24.7 % (37.0-47.0); HEMOGLOBIN 7.5 g/dL (12.0-16.0); IMM GRAN# 0.15 X1000 (0.0-0.04); IMM GRAN% 0.7 % (0.0-0.5); LYMPH# 3.23 X1000 (1.2-3.4); LYMPH% 14.4 % (20.5-51.1); MCHC 30.4 g/dL (33-37); MCV 102.1 FL (81-99); MONO# 1.56 X1000 (0.11-0.59); MONO% 6.9 % (1.7-9.3); MPV 11.6 FL (7.4-10.4); NEUT# 17.15 X1000 (1.4-6.5); NEUT% 76.3 % (42.2-75.2); PLT 457 X1000 (130-400); RBC 2.42 XMIL (4.2-5.4); RDW 18.3 % (11.5-14.5); WBC 22.48 X1000 (4.8-10.8)
[2019-12-15 18:53] LABS: ALBUMIN 2.8 g/dL (3.5-5.0); CALCIUM 8.7 mg/dL (8.8-10.2); CREATININE 3.3 mg/dL (0.5-0.9); POTASSIUM 5.4 mmol/L (3.5-5.1); TOTAL BILIRUBIN 0.5 mg/dL (0.20-1.00)
[2019-12-15] MEDS ORDERED: NS 1,000 ML IV ONE (19:06)
[2019-12-15 19:07] LABS: OCCULT BLOOD 1 POSITIVE (NEGATIVE)
[2019-12-15] MEDS ORDERED: TYLENOL PO ONE (19:24)
--- NOTE | 2019-12-15 20:15 | Diag Imaging Result Doc PS360 ---
EXAM: CT ABDOMEN/PELVIS W/O CONTRAST HISTORY: 22 WBC, RECTAL BLEEDING, PAIN TECHNIQUE: CT abdomen and pelvis without oral or intravenous contrast COMPARISON: 06/07/2019 FINDINGS: The gallbladder has been removed. There are many pancreatic calcifications. No inflammation about the pancreas. No pseudocyst. No splenomegaly. No focal hepatic abnormality identified on this noncontrasted exam. Normal adrenal glands. No renal stones. Slight distention to the upper right ureter, but no ureteral stones. Mild periureteral inflammation. No aortic aneurysm. Mild atherosclerosis. No bowel obstruction. There is fluid throughout the small bowel. No inflammation about the cecum. There are scattered colonic diverticula. The urinary bladder is mildly distended and appears normal. Intrauterine device appears in good position. No pelvic mass. IMPRESSION: 1.Chronic pancreatitis 2.Cholecystectomy 3.Colonic diverticulosis 4.Possible ureteritis This exam was performed using automated exposure control, adjustment of mA or kV according to patient size, and/or use of iterative reconstruction technique. Electronically signed by Min Culver 12/15/2019 8:12 PM
[2019-12-15] MEDS ORDERED: SODIUM CHLORIDE 0.9% INJ ONE (20:30)
[2019-12-15] MEDS ORDERED: PROTONIX IV ONE (20:30)
--- NOTE | 2019-12-15 20:46 | Diag Imaging Result Doc PS360 ---
EXAM: CHEST-2 VIEWS HISTORY: SEPSIS W/U TECHNIQUE: Two views COMPARISON: 08/11/2019 FINDINGS: The lungs are well expanded. The heart is not enlarged. The vessels are not distended. There are no infiltrates. No pleural effusions. IMPRESSION: No pneumonia Electronically signed by Min Culver 12/15/2019 8:44 PM
[2019-12-15] MEDS ORDERED: LEVAQUIN 500 MG/D5W 500 MG/100 ML IVPB IV ONE (21:24)
[2019-12-15 21:28] LABS: URINE SOURCE CLEAN CATCH
[2019-12-15 21:31] LABS: BILIRUBIN URINE NEGATIVE (NEGATIVE); BLOOD URINE LARGE (NEGATIVE); COLOR ORANGE; GLUCOSE URINE NEGATIVE (NEGATIVE); KETONE URINE NEGATIVE (NEGATIVE); LEUKOCYTES URINE LARGE (NEGATIVE); NITRITE URINE NEGATIVE (NEGATIVE); PROTEIN URINE 100 mg/dL (NEGATIVE); SP GRAVITY URINE 1.014; TURBIDITY URINE TURBID (CLEAR); UROBILINOGEN URINE NORMAL (NORMAL)
[2019-12-15 21:33] LABS: UR EPITHELIAL CELLS <10 /HPF (<10); URINE BACTERIA 2+ /HPF; URINE RBC TNTC /HPF (<10); URINE WBC TNTC /HPF (<10)
[2019-12-15 21:42] LABS: BASO# 0.05 X1000 (0.0-0.2); BASO% 0.2 % (0.0-0.8); EOS% 1.4 % (0.0-10.0); HEMATOCRIT 20.1 % (37.0-47.0); HEMOGLOBIN 6.2 g/dL (12.0-16.0); IMM GRAN# 0.19 X1000 (0.0-0.04); IMM GRAN% 0.9 % (0.0-0.5); LYMPH# 2.85 X1000 (1.2-3.4); LYMPH% 13.3 % (20.5-51.1); MCH 30.2 PG (27-31); MCHC 30.8 g/dL (33-37); MONO# 1.42 X1000 (0.11-0.59); MONO% 6.6 % (1.7-9.3); MPV 12.1 FL (7.4-10.4); NEUT# 16.66 X1000 (1.4-6.5); NEUT% 77.6 % (42.2-75.2); PLT 450 X1000 (130-400); RBC 2.05 XMIL (4.2-5.4); RDW 18.4 % (11.5-14.5); WBC 21.47 X1000 (4.8-10.8)
[2019-12-15 22:11] LABS: INR 1.16; PROTIME 15.4 Seconds (11.0-16.0)
[2019-12-15 22:12] LABS: PTT 37.7 Seconds (22.3-41.8)
[2019-12-15 22:48] LABS: BANDS 6 % (0-1); HYPOCHROM 2+; LYMPHS 11 % (21-51); MONO 5 % (1-9); SEGS 77 % (42-75)
[2019-12-15 22:49] LABS: LARGE PLATELETS 1+; MICROCYTOSIS 1+; STOMATOCYTES 1+
[2019-12-16] MEDS ORDERED: MORPHINE IV ONE (01:05)
[2019-12-16] MEDS ORDERED: TYLENOL PO PRN (01:05)
[2019-12-16] MEDS ORDERED: ZOFRAN IV PRN (01:05)
[2019-12-16] MEDS ORDERED: NS 1,000 ML IV SCH (01:15)
[2019-12-16] MEDS ORDERED: PROTONIX IV SCH (01:15)
[2019-12-16] MEDS: NS 1,000 ML IV SCH ×3 (01:59→20:36)
[2019-12-16] MEDS: SODIUM CHLORIDE 0.9% INJ SCH (01:59)
[2019-12-16 02:23] LABS: RETIC% 2.17 % (0.8-2.1)
[2019-12-16 02:29] LABS: FERRITIN 491 ng/mL (13-150); TSH 0.71 uIUmL (0.27-4.20)
--- NOTE | 2019-12-16 02:59 | HISTORY AND PHYSICAL ---
REASON FOR ADMISSION: One-week history of persistent headache and 2-day history of weakness and lightheadedness. HISTORY OF PRESENT ILLNESS: Ms. Jodie Alcaraz is a 49-year-old woman with past medical history of CVA on aspirin. She has had 2 prior strokes. She also has a history of epilepsy, hyperlipidemia, hypertension, chronic kidney disease, her baseline creatinine 1.4. Comes in today complaining of 1-week history of throbbing headache, photophobia, phonophobia. Says that she has been taking a total of 8 to 10 tablets of 20 mg Motrin for headaches and later supplemented this by taking Samra- [place] Cold and Flu because her mother, whom she lives, was just recently discharged for pneumonia. Says that 2 days ago start having frequent hematochezia, roughly about 10 times a day with no clots. Denies any abdominal pain, but only admits to having right-sided flank pain, but no dysuria or genitourinary complaints, except for decreased urine output over the last couple of days. Vomited once today, but no blood, no coffee grounds. No fever, chills, cough, or cardiorespiratory complaints. She says she has been having worsening postural lightheadedness. No loss of consciousness. No focal weakness, numbness, or tingling. REVIEW OF SYSTEMS: Twelve system review was done. Denies any bleeding from any other orifice. No polyuria or polydipsia. ALLERGIES: Penicillins and albuterol. HOME MEDICATIONS: She is on aspirin 81 mg daily, Keppra 750 mg b.i.d., Altace 1.25 mg daily, amlodipine 10 mg daily, Lipitor 40 mg at bedtime, Nexium 40 mg b.i.d. SURGICAL HISTORY: Notable for cholecystectomy, , sinus surgery, left eye surgery. FAMILY HISTORY: No diabetes. No bleeding diathesis. History of lung, breast and gastric cancer and strokes in first-degree relatives. SOCIAL HISTORY: Smokes about 5 cigarettes a day. No alcohol use or drug use. At this time, currently resides in [place] and is trying to relocate here. LABORATORY WORK: White count 21,000, hemoglobin and hematocrit 6 and 20, platelet count 450,000, with 77% neutrophils, large platelets, 1+ stomatocytes, 1+ microcytes. Sodium is 135, potassium 5.4, glucose 107, BUN 60, creatinine 3.3. Alkaline phosphatase 219, total protein, however, is 9 with albumin of 2.8, globulin of 6. Lactate 1.3. PT and PTT normal. Flu screen is negative. Urinalysis with 2+ bacteria, too numerous count WBCs and RBCs, large leukocytes. CT abdomen and pelvis shows chronic pancreatitis with no acute intra-abdominal process of note, except for possible inflammatory changes in the right ureter. Chest and sinus x-rays were normal. PHYSICAL EXAMINATION: VITAL SIGNS: Blood pressure 107/60, heart rate 100, temperature 98.4, respiratory rate 16, O2 saturation 100% on room air. GENERAL: She is a thin, middle-aged black woman, not in acute distress. Alert and oriented x3. Normal mood and affect. HEENT: Head is normocephalic, atraumatic. Eyes: PERRL, EOMI. She is anicteric but pale. Mildly pale sclerae. ENT is grossly normal. NECK: Supple. No JVD or carotid bruit. No thyromegaly. No cervical or scalp, supraclavicular lymph nodes appreciated. CHEST: Clear when auscultated with good air entry in both lung durbin. CARDIOVASCULAR: First and 2nd heart sounds heard. No gallops, murmurs, rubs. Rhythm is regular. ABDOMEN: No CVA tenderness. She has diffuse mild tenderness to deep palpation without any peritoneal signs. Bowel sounds are normal. RECTAL: Deferred at this time. EXTREMITIES: Distal pulse volumes are full but tachycardic, regular, symmetrical. No edema, clubbing, or peripheral cyanosis. NEUROLOGICAL: No gross focal deficits. SKIN: Intact. No breakdown, lesion, erythema. Skin exam is grossly normal. ASSESSMENT: 1. Hemorrhagic anemia secondary to lower gastrointestinal bleed. 2. Lower gastrointestinal bleed, possibly related to possible colonic or small-bowel ulceration from use of nonsteroidal anti-inflammatory. 3. Right ureteral inflammation versus infection. 4. Hypertension. 5. Epilepsy. 6. Acute kidney injury secondary to volume loss, use of nonsteroidal anti-inflammatories and concomitant use of ZI inhibitors. PLAN: We will aggressively rehydrate patient to maintain blood pressure. We will transfuse 2 units packed red blood cells. Repeat levels later today. Consult Gastroenterology for possible endoscopic evaluation. Follow labs closely to monitor not only hematocrit but kidney function. Hold any potentially nephrotoxic medication. Follow urine cultures and empirically treat patient with Levaquin in the interim. Chronic pancreatitis secondary to prior EtOH use. Anemia workup has been ordered and needs to be followed. The patient has a macrocytic picture, could be related to underlying liver disease or surreptitious ingestion of alcohol versus the possibility of hematological problem. The patient's A/G ratio is low. Need to also consider the possibility of a myeloma, if need be. cc: Kim Barber MD
[2019-12-16] MEDS: MORPHINE IV PRN ×4 (05:22→18:05)
--- NOTE | 2019-12-16 10:31 | PROGRESS NOTE ---
DATE: 12/16/2019 SUBJECTIVE: Patient reports feeling better. Headache is much better. No melena or hematemesis reported. OBJECTIVE: Vital Signs: Temperature 98.4 degrees, heart rate 106, respiratory rate 18, blood pressure 124/67, O2 saturation 100% on room air. General Examination: This is a chronically ill- appearing, 49-year-old, female lying in bed, in no acute distress. Cardiovascular Examination: S1 and S2 heard. No murmurs, gallops, or rubs. Regular rate and rhythm. Respiratory Examination: Clear bilaterally to auscultation. No work of breathing or using accessory muscles. Abdomen: Soft. Nontender to palpation. Bowel sounds present. No organomegaly. No signs of peritoneal irritation. Extremities: No clubbing, cyanosis, or edema. Peripheral pulses present in both legs. Neurological Examination: The patient is alert and oriented x3. Laboratory Data: Pending at the time of my dictation. ASSESSMENT AND PLAN: 1. Gastrointestinal bleeding, most likely related to nonsteroidal anti-inflammatory drug use. Iron is low so there is also a component of iron deficiency versus anemia of chronic disease. In any case, patient has been ordered 2 units of blood yesterday but 1 has been given already. We will continue to monitor this patient closely. 2. Acute kidney injury, most likely secondary to nonsteroidal use. We will continue with intravenous fluids and we will keep checking BMP daily. 3. Urinary tract infection. We will continue with ceftriaxone. 4. Hypertension. Blood pressure is under control. We will continue with the same management. 5. Epilepsy. We have continued with home medications; in this case, is Keppra. 6. Disposition. Continue to monitor this patient closely. We will follow recommendations from gastroenterology. cc: David Serrano MD
[2019-12-16] MEDS: PROTONIX IV SCH (12:01)
[2019-12-16] MEDS: KEPPRA PO SCH (12:01)
[2019-12-16 16:50] LABS: BASO# 0.06 X1000 (0.0-0.2); BASO% 0.3 % (0.0-0.8); EOS# 0.29 X1000 (0.0-0.7); EOS% 1.5 % (0.0-10.0); HEMOGLOBIN 9.9 g/dL (12.0-16.0); IMM GRAN# 0.12 X1000 (0.0-0.04); IMM GRAN% 0.6 % (0.0-0.5); LYMPH# 2.61 X1000 (1.2-3.4); LYMPH% 13.6 % (20.5-51.1); MCH 30.2 PG (27-31); MCHC 30.9 g/dL (33-37); MCV 97.6 FL (81-99); MONO# 1.13 X1000 (0.11-0.59); MONO% 5.9 % (1.7-9.3); MPV 11.5 FL (7.4-10.4); NEUT# 14.95 X1000 (1.4-6.5); NEUT% 78.1 % (42.2-75.2); PLT 429 X1000 (130-400); RBC 3.28 XMIL (4.2-5.4); RDW 15.8 % (11.5-14.5); WBC 19.16 X1000 (4.8-10.8)
[2019-12-16 17:11] LABS: ALB/GLOB RATIO 0.6; ALBUMIN 2.8 g/dL (3.5-5.0); CALCIUM 8.4 mg/dL (8.8-10.2); CREATININE 3.4 mg/dL (0.5-0.9); PHOSPHORUS 5.7 mg/dL (2.7-4.5); POTASSIUM 5.7 mmol/L (3.5-5.1); TOTAL BILIRUBIN 0.49 mg/dL (0.20-1.00); TOTAL PROTEIN 7.4 g/dL (6.3-8.3)
--- NOTE | 2019-12-16 21:01 | GASTROENTEROLOGY CONSULTATION ---
DATE: 12/16/2019 ATTENDING PHYSICIAN: Dr. Steel. REASON FOR CONSULTATION: Gastrointestinal bleed. HISTORY OF PRESENT ILLNESS: Ms. Alcaraz is a 49-year-old female who was admitted on 12/15/2019 for a 2-day history of weakness and lightheadedness. The patient has a history of CVA and she takes aspirin. She has a history of 2 prior strokes. She has a history of epilepsy, hyperlipidemia, hypertension, chronic kidney disease with baseline creatinine 1.4. She has been taking about 8 to 10 tablets of 200 mg Motrin for headaches and later supplemented this by taking Samra-[place] Cold and Flu for throbbing headache, photophobia and phonophobia. She has started noticing hematochezia about 2 days ago. She was passing blood in the stools, almost about 10 times a day with no clots. She also had some abdominal pain in the right flank area. She also had vomiting once on the day of admission, but no coffee-grounds and no blood in the vomitus. In the hospital she was noted to have a hematocrit of 20 and she was diagnosed with a UTI. CT scan of the abdomen and pelvis showed evidence of chronic pancreatitis and possible inflammatory changes in the right ureter. She has been given 2 units of blood transfusion during this admission. Gastroenterology was consulted for further management. PAST MEDICAL HISTORY: Cerebrovascular accident, 2 prior strokes, epilepsy, hyperlipidemia, hypertension, chronic kidney disease, NSAID abuse, reflux disease. ALLERGIES: Penicillin and albuterol. PAST SURGICAL HISTORY: Significant for cholecystectomy, , sinus surgery, left eye surgery. FAMILY HISTORY: History of lung, breast and gastric cancer in first-degree relatives. History of strokes in first-degree relatives. SOCIAL HISTORY: She smokes about 5 cigarettes a day. No history of alcohol use or drug abuse at this time. Patient currently resides in [place] and is trying to relocate here. MEDICATIONS: Her medications in the hospital include morphine 2 mg IV every 3 hours, Tylenol, Lipitor, Keppra, Levaquin, IV normal saline 150 mL/h, Zofran, Protonix b.i.d. She is currently on clear liquid diet. REVIEW OF SYSTEMS: Denies any current fevers, rigors, chills, chest pain, shortness of breath, dyspnea. She did have a history of vomiting and does have a history of passing blood in the stools. Does have history of recent strokes. PHYSICAL EXAMINATION: Vital signs: Temperature 97.2 degrees to 100.2 degrees, respiratory rate 18, blood pressure 120/70, saturating 100% on room air. Body weight of 120 pounds, BMI of 19.4 kg/m2. General: Thinly built, lying in bed, in no acute distress. HEENT: Pale conjunctivae. No icterus. Pupils equal, reactive to light. Neck: Supple. Abdomen: Mild discomfort in the belly region. No rebound or guarding. Bowel sounds present. Extremities: No cyanosis or clubbing. Neurologic: She is alert, awake oriented to time, place, and person. LABS: Her hemoglobin 6.2 and hematocrit 20.1. White count of 21.47 and platelet count of 450,000, MCV of 98, INR 1.16, PT of 15.4, PTT of 37.7. Sodium 135, potassium 5.4, chloride 106, bicarb of 99, bicarb 20, BUN of 63.3, glucose of 107. Calcium is 8.7, iron level of 30, ferritin of 491, total bilirubin is 0.5. AST 19, ALT 13, alkaline phosphatase 219, total protein of 9, albumin of 2.8. B12 more than 2000 and folate of 6.9. TSH 0.71. Urinalysis showing positive protein, large blood, large leukocytes. Stool occult was positive. Influenza A and B screen was negative. Urine culture is pending. Blood culture preliminary were drawn yesterday and showed gram-negative rods in 2 out [address] scan of abdomen and pelvis showed chronic pancreatitis, cholecystectomy, colonic diverticulosis, possible urethritis, fluid throughout the small bowel. IMPRESSION AND PLAN: 1. Gram negative sepsis. 2. Gastrointestinal bleeding, likely upper as the patient has been has a history of nonsteroidal anti-inflammatory abuse. 3. Diverticulosis in the colon seen on imaging. So, she could also have diverticular bleeding as well. 4. Acute kidney injury secondary to nonsteroidal anti-inflammatory abuse and sepsis. 5. Urinary tract infection. 6. Hypertension. 7. Epilepsy. 8. History of cerebrovascular accident. 9. Chronic smoker. RECOMMENDATIONS: We will continue patient on Protonix twice daily. She has been transfused 2 units of blood. She is on antibiotics with Levaquin per the primary care team. She is on pain control with morphine IV every 3 hours. She is also getting fluids at 150 mL/hour. She is on Zofran 4 mg IV every 4 hours as needed. We will schedule for EGD tomorrow morning to evaluate for the GI bleed. The risks, benefits, indications and alternatives the were explained to the patient. All questions answered. Please call with any further questions. cc: MD David Mendez MD
[2019-12-16] MEDS ORDERED: KAYEXALATE PO ONE (22:22)
[2019-12-17] MEDS: MORPHINE IV PRN ×4 (00:36→20:39)
[2019-12-17] MEDS: PROTONIX IV SCH ×3 (00:36→21:58)
[2019-12-17] MEDS: SODIUM CHLORIDE 0.9% INJ SCH (00:36)
[2019-12-17] MEDS: LIPITOR PO SCH ×2 (00:37→20:41)
[2019-12-17] MEDS: LEVAQUIN 500 MG/D5W 500 MG/100 ML IVPB IV SCH ×2 (00:37→21:58)
[2019-12-17] MEDS: KEPPRA PO SCH ×3 (00:37→20:41)
[2019-12-17] MEDS: NS 1,000 ML IV SCH (00:38)
[2019-12-17] MEDS: AZACTAM 1 GM in NS 50 ML IV SCH ×5 (01:21→17:27)
[2019-12-17 08:24] LABS: BASO# 0.05 X1000 (0.0-0.2); BASO% 0.3 % (0.0-0.8); HEMATOCRIT 29.8 % (37.0-47.0); HEMOGLOBIN 9.1 g/dL (12.0-16.0); IMM GRAN% 0.7 % (0.0-0.5); LYMPH# 2.29 X1000 (1.2-3.4); LYMPH% 15.5 % (20.5-51.1); MCH 30.2 PG (27-31); MCHC 30.5 g/dL (33-37); MONO# 1.13 X1000 (0.11-0.59); MONO% 7.6 % (1.7-9.3); MPV 11.4 FL (7.4-10.4); NEUT# 10.94 X1000 (1.4-6.5); NEUT% 73.9 % (42.2-75.2); PLT 390 X1000 (130-400); RBC 3.01 XMIL (4.2-5.4); RDW 16.3 % (11.5-14.5); WBC 14.81 X1000 (4.8-10.8)
--- NOTE | 2019-12-17 08:42 | PROGRESS NOTE ---
DATE: 12/17/2019 SUBJECTIVE: Patient reports feeling weak but denies any fever or chills. OBJECTIVE: Vitals: Temperature 98.2 degrees, heart rate 102, respiratory 20, blood pressure 118/62, O2 saturation 100% on room air. General: This is a 49-year-old -[place] female lying in bed, in no acute distress. Cardiovascular: S1, S2 heard. No murmurs, gallops, or rubs. Regular rate and rhythm. Respiratory: Clear bilaterally to auscultation. No work of breathing or using accessory muscles. Abdomen: Soft. Nontender to palpation. Bowel sounds present. No organomegaly. Extremities: No clubbing, cyanosis, or edema. Peripheral pulses present in both legs. Neurological: Patient alert and oriented x3. Moves all 4 extremities. LABORATORY DATA: Reviewed. ASSESSMENT AND PLAN: 1. GI bleeding. That is most likely related to nonsteroidal anti-inflammatory drug abuse. We do not have the results from today but from the day before yesterday, the hemoglobin was 6.2 and yesterday was it 9.9, so we will see what the CBC shows today. Patient has been evaluated by Gastroenterology and they are planning to do upper endoscopy today. Help appreciated. 2. Acute on chronic kidney disease. I have checked the creatinine for the last 4 years and apparently the last time that we have checked it was apparently 2 years ago. Her creatinine has been in the range of 1.4 to 1.5. At this time, it is 3.5 not recovering. We will consult Dr. Potts from Nephrology and we will follow recommendations. 3. Gram negative bacteremia/UTI. We were informed about this finding, so the patient has been started on Aztreonam 1 g IV q.8 hours. Patient is already on levofloxacin. Will wait for the results of the blood culture. We will continue with the same management. 4. Her white cell count is still elevated. We will continue to monitor. 5. Hypertension. Blood pressure is under control. We will continue with same management. 6. Epilepsy. We will continue with Keppra IV, which is a home medication for her. 7. Disposition: We will continue to monitor this patient closely. We will see what GI has to say. cc: David Serrano MD
[2019-12-17] MEDS ORDERED: DIPRIVAN 1% ONE (08:53)
[2019-12-17] MEDS ORDERED: XYLOCAINE-MPF 2% ONE (08:53)
[2019-12-17 09:20] LABS: ALBUMIN 2.6 g/dL (3.5-5.0); CALCIUM 7.9 mg/dL (8.8-10.2); CREATININE 3.3 mg/dL (0.5-0.9); PHOSPHORUS 6.3 mg/dL (2.7-4.5); POTASSIUM 5.7 mmol/L (3.5-5.1)
--- NOTE | 2019-12-17 09:39 | ENDOSCOPY OPERATIVE NOTE ---
[facility] ENDOSCOPY OPERATIVE NOTE , EGD PROCEDURE REPORT EXAM DATE: 12/17/2019 PATIENT NAME: Jodie Alcaraz MR#: [id number] BIRTHDATE: 1970 ATTENDING: Nikko Crenshaw MD STATUS: inpatient DECISION ANALYST: Pepe Coronado and Cori Barraza INDICATIONS: The patient is a 49 yr old female here for an EGD due to GI bleed, Anemia, UTI, H/o CVA . PROCEDURE PERFORMED: EGD, diagnostic MEDICATIONS: Per Anesthesia ESTIMATED BLOOD LOSS: None CONSENT: The patient understands the risks and benefits of the procedure and understands that these r isks include, but are not limited to: sedation, allergic reaction, infection, perforation and/or bleeding. Alternative means of evaluation and treatment include, among others: physical exam, x-rays, and/or surgical intervention. The patient elects to proceed with this endoscopic procedure. DESCRIPTION OF PROCEDURE: During pre-op preparation period all mechanical and medical equipment was c hecked for proper function. Hand hygiene and appropriate measures for infection prevention was taken. After the risks, benefits and alternatives of the procedure were thoroughly explained, Informed consent was verified, confirmed and timeout was successfully executed by the treatment team. The patient was anesthetized with topical anesthesia and the [id number] ([id number]) endoscope was introduced through the mouth and advanced to the second portion of the duoden um. Retroflexion was performed in the stomach and revealed no abnormalities. The gastroscope was then slowly withdraw n and removed. The patient's toleration of the procedure was good. ESOPHAGUS: Moderately severe monilial esophagitis was found in the mid esophagus and distal esophagus . Reflux esophagitis was found in the distal esophagus. Esophagitis was LA Class C: Mucosal breaks continuous between > 2 mucosal folds, but involving less than 75% of the esophageal circumference. A 3 cm hiatal hernia wa s noted. STOMACH: Gastritis (inflammation) was found in the prepyloric region of the stomach and gastric antru m. DUODENUM: The duodenal mucosa showed no abnormalities in the duodenal bulb, 1st part duodenum, and 2n d part duodenum. ADVERSE EVENTS: There were no complications. IMPRESSIONS: 1. Monilial esophagitis in the mid esophagus and distal esophagus 2. Reflux esophagitis in the distal esophagus 3. 3 cm hiatal hernia 4. Gastritis (inflammation) was found in the prepyloric region of the stomach and gastric antrum 5. The duodenal mucosa showed no abnormalities in the duodenal bulb, 1st part duodenum, and 2nd part duodenum RECOMMENDATIONS: Start Fluconazole 100 mg every day for 10 days Start Iron C BID and MVI QD for 90 days RTC 3 weeks for outpatient colonoscopy once esophagitis heals. Avoid NSAIDs GERD lifetsyle changes Start Miralax 17g QD REPEAT EXAM: Nikko Crenshaw MD eSigned: Nikko Cresnhaw MD 12/17/2019 9:39 AM CC: CPT CODES: [id number] Upper gastrointestinal endoscopy including esophagus, stomach, and either the du odenum and/or jejunum as appropriate; diagnostic, with or without collection of specimen(s) by brushing or washing (separate procedure) ICD CODES: The ICD and CPT codes recommended by this software are interpretations from the data that the [facility] staff has captured with the software. The verification of the translation of this report to the ICD and CPT co eunice and modifiers is the sole responsibility of the health care institution and practicing physician where this report was generated. [employer] will not be held responsible for the validity of the ICD and CPT codes i ncluded on this report. [facility] assumes no liability for data contained or not contained herein. CPT is a registered tra demark of the [employer]. PATIENT NAME: Jodie Alcaraz MR#: [id number]
[2019-12-17] MEDS: DIFLUCAN 100 MG/NS 100 MG/50 ML IVPB IV SCH (10:46)
[2019-12-17] MEDS: SODIUM BICARBONATE 8.4% 150 MEQ in D5W 1,000 ML IV SCH (10:46)
--- NOTE | 2019-12-17 11:24 | Diag Imaging Result Doc PS360 ---
EXAM: US RENAL 2 (RETROPER) COMPLETE INDICATION: rojelio/arf TECHNIQUE: COMPARISON: Abdominal ultrasound dated 08/12/2019 FINDINGS: Both kidneys exhibit increased cortical echotexture, which is a nonspecific indicator of medical renal disease. No discrete renal mass or hydronephrosis is identified. The right kidney measures 10.6 cm and the left kidney measures 10.7 cm in the greatest longitudinal axes. Both renal cortices measure up to 0.9 cm in thickness. The urinary bladder is only slightly distended and is unremarkable, otherwise. An IUD is noted incidentally in the endometrial cavity. IMPRESSION: Increased renal cortical echotexture bilaterally, which is a nonspecific indicator of medical renal disease. Electronically signed by Justen Ivey 12/17/2019 11:22 AM
[2019-12-17] MEDS: ICAR-C PO SCH ×2 (11:31→20:41)
[2019-12-17] MEDS: MIRALAX PO SCH (11:31)
--- NOTE | 2019-12-17 11:48 | NEPHROLOGY PROGRESS NOTE ---
DATE: 12/17/2019 REASON FOR ADMISSION: Headache, weakness, lightheadedness, lower GI bleed, acute kidney injury. REASON FOR CONSULTATION: Acute kidney injury, assist with management. CONSULTING PHYSICIAN: Dr. Steel. HISTORY OF PRESENT ILLNESS: This is a 49-year-old female, who has a past medical history of CVA with 2 prior strokes, hyperlipidemia, chronic kidney disease with a baseline creatinine around 1.4/1.5. She came into the emergency room on day of admission secondary to severe headache. She had been taking large amounts of Motrin, as well as Sam[place]un[place] cold and flu. She was taking upwards of 1600 to 2000 mg of Motrin day. This was because of her severe headaches, photophobia and phonophobia. She started having hematochezia about 2 days prior to admission. Did have some right-sided flank pain and some decreased urine. She did start having nausea and vomiting, but no bloody or coffee-ground vomitus. She continued with headache, lightheadedness, weakness and he came to the emergency room for further workup. In the ER, she was noted to have a creatinine of 3.3 and a potassium of 5.4. Her hemoglobin was 6 and hematocrit of 20. She had a WBC of 21. She had a urinalysis with 2+ bacteria TNTC, WBC large leukocytes, TNTC RBCs. She had a CT of the abdomen and pelvis that indicated chronic pancreatitis with some questionable inflammatory changes in the right ureter. She was admitted to the hospital for further workup and treatment. She has been treated with packed red blood cells, fluid resuscitation. Her creatinine today is essentially unchanged at 3.4. She has a CO2 of 11, a potassium of 5.7. Hemoglobin however is improved nicely to 9.9. When I see her she continues with some abdominal pain, states she is to have a EGD scope today. Denies any further complaints aside from weakness. PAST MEDICAL HISTORY: As noted above. PAST SURGICAL HISTORY: Cholecystectomy, . She has had sinus and left eye surgery. ALLERGIES: Penicillin. HOME MEDICATIONS: Listed as Keppra, Altace, amlodipine, Lipitor, Nexium. FAMILY HISTORY: History of lung, breast and gastric cancer. No diabetes. SOCIAL HISTORY: Continues to smoke. No EtOH or illicit drug use currently. Does have past EtOH distantly. PHYSICAL EXAMINATION: Vital Signs: Temperature 97.5 degrees, pulse 102, respiratory rate 20, blood pressure 110/62. Intake 2.6 L; output 450 mL. General: This is a chronically ill- appearing, middle-aged female resting in bed. She is awake and alert. She does not appear in distress. HEENT: Normocephalic, atraumatic. Conjunctivae are pale. Oral mucosa is dry. Neck: Supple without JVD. Cardiovascular: Regular rate and rhythm. There is no murmur noted. Pulmonary: Clear bilaterally. Equal excursion. Abdomen: Soft. Diffuse tenderness. Mild. : Voiding. Extremities: No clubbing, cyanosis, edema. Somewhat thin. Skin: Warm and dry. Neurologic: Nonfocal. LAB DATA: WBC of 19.6, hemoglobin 9.9, platelets of 429. Sodium 139, potassium 5.7, CO2 11, creatinine 3.3. ASSESSMENT AND PLAN: 1. Acute on chronic kidney disease, likely secondary to intravascular volume loss with the anemia/gastrointestinal bleed plus question of acute tubular necrosis secondary to high-dose ibuprofen use. Her renal function really has not improved with the fluid resuscitation and packed red blood cells overnight. Order urine studies. Today, her imaging did not have any outstanding issues, aside from the question of possible inflammatory changes in the right ureter. She does have some chronic pancreatitis. The patient does not have any absolute indications for dialysis at this time, although it was quite early in her hospitalization. We will continue to monitor closely. States she was told recently at [facility] that she has kidney disease. 2. Gastrointestinal bleed. Going for esophagogastroduodenoscopy today. 3. Electrolytes, acid-base balance. She has some modest hyperkalemia and acidosis. We will restart her bicarbonate. 4. Gram-negative urinary tract infection on appropriately dosed antibiotics. No changes. Awaiting for blood cultures to complete. 5. Hypertension, controlled. 6. Fluid volume. She appears somewhat dry on exam. See above for plan. Dictated by AVINASH Guerra for Chinedu Potts MD Face to face encounter, data reviewed, discussed with Ana M Delgado on 12/17/18. I agree with the above assessment and plan of care. cc: Chinedu Potts MD [facility]
[2019-12-18] MEDS: AZACTAM 1 GM in NS 50 ML IV SCH ×2 (01:04→11:11)
[2019-12-18] MEDS: MORPHINE IV PRN (03:49)
[2019-12-18] MEDS: SODIUM BICARBONATE 8.4% 150 MEQ in D5W 1,000 ML IV SCH (03:50)
[2019-12-18 06:24] LABS: URINE SOURCE VOIDED
[2019-12-18 06:48] LABS: BILIRUBIN URINE NEGATIVE (NEGATIVE); BLOOD URINE MODERATE (NEGATIVE); COLOR YELLOW; GLUCOSE URINE NEGATIVE (NEGATIVE); KETONE URINE NEGATIVE (NEGATIVE); LEUKOCYTES URINE SMALL (NEGATIVE); NITRITE URINE NEGATIVE (NEGATIVE); PROTEIN URINE TRACE mg/dL (NEGATIVE); SP GRAVITY URINE 1.011; TURBIDITY URINE CLEAR (CLEAR); UROBILINOGEN URINE NORMAL (NORMAL)
[2019-12-18 06:49] LABS: UR EPITHELIAL CELLS <10 /HPF (<10); URINE BACTERIA NEGATIVE /HPF; URINE RBC TNTC /HPF (<10); URINE WBC 20-40 /HPF (<10)
[2019-12-18 06:59] LABS: UR CREAT RANDOM 42.9 mg/dL (11-20); UR PROT RANDOM 15.4 mg/dL
[2019-12-18 07:41] VITALS: BP 135/83
[2019-12-18] MEDS: KEPPRA PO SCH (08:32)
[2019-12-18] MEDS: ICAR-C PO SCH (08:32)
[2019-12-18] MEDS: MIRALAX PO SCH (08:34)
[2019-12-18] MEDS: PROTONIX IV SCH (08:35)
[2019-12-18 08:46] LABS: BASO# 0.05 X1000 (0.0-0.2); BASO% 0.4 % (0.0-0.8); EOS# 0.35 X1000 (0.0-0.7); EOS% 2.5 % (0.0-10.0); HEMATOCRIT 27.3 % (37.0-47.0); HEMOGLOBIN 8.3 g/dL (12.0-16.0); IMM GRAN# 0.09 X1000 (0.0-0.04); IMM GRAN% 0.6 % (0.0-0.5); LYMPH# 2.57 X1000 (1.2-3.4); LYMPH% 18.5 % (20.5-51.1); MCHC 30.4 g/dL (33-37); MCV 98.6 FL (81-99); MONO# 0.88 X1000 (0.11-0.59); MONO% 6.3 % (1.7-9.3); MPV 11.1 FL (7.4-10.4); NEUT# 9.95 X1000 (1.4-6.5); NEUT% 71.7 % (42.2-75.2); PLT 484 X1000 (130-400); RBC 2.77 XMIL (4.2-5.4); WBC 13.89 X1000 (4.8-10.8)
[2019-12-18] MEDS ORDERED: SODIUM BICARBONATE PO SCH (09:00)
[2019-12-18] MEDS ORDERED: CENTRUM SILVER PO SCH (09:00)
[2019-12-18 09:49] LABS: ALBUMIN 2.4 g/dL (3.5-5.0); CALCIUM 8.1 mg/dL (8.8-10.2); CREATININE 2.9 mg/dL (0.5-0.9); PHOSPHORUS 5.1 mg/dL (2.7-4.5); POTASSIUM 4.9 mmol/L (3.5-5.1)
[2019-12-18] MEDS ORDERED: NORCO-10 PO ONE (09:58)
[2019-12-18] MEDS: DIFLUCAN 100 MG/NS 100 MG/50 ML IVPB IV SCH (11:11)
--- NOTE | 2019-12-18 12:28 | GASTROENTEROLOGY PROGRESS NOTE ---
DATE: 12/18/2019 SUBJECTIVE: Ms. Alcaraz is a 49-year-old female. She is sitting in bed having her breakfast. She has denied any abdominal pain, nausea, vomiting. The patient also denied having any bowel movements today. OBJECTIVE: Vital Signs: Temperature 99.3 degrees, pulse 98, respirations 18, blood pressure 135/83. Oxygen saturation 100% on room air. The patient's weight is 120 pounds. BMI is 19.4 kg/m2. General: She is alert, oriented x3, in no acute distress. HEENT: Pale conjunctivae. No icterus. Neck: Supple. Lungs: Clear to auscultation. Cardiovascular: Patient is tachycardic. Abdomen: Soft, nontender. Active bowel sounds heard in all 4 quadrants. Extremities: No clubbing, no cyanosis, no edema. Pedal pulses 2+ present bilaterally. Neurologic: Alert, oriented x3. LABS: WBCs of 13.89, RBCs 2.77, hemoglobin 8.3, hematocrit is 27.3, platelet count is 484,000. Sodium 143, potassium 4.9, chloride 114, carbon dioxide 14, anion gap 15, BUN 34, creatinine is 2.9, glucose 109, calcium 8.1, phosphorus 5.1, albumin is 2.4. The patient's renal ultrasound yesterday showed increased renal cortical echotexture bilaterally which is nonspecific indicator of medical renal disease. EGD FINDINGS: An endoscopy was done yesterday and it showed that she had monilial esophagitis in the mid esophagus and distal esophagus, reflux esophagitis in the distal esophagus. A 3 cm hiatal hernia and gastritis in the peripyloric region of the stomach and the gastric antrum and the duodenal mucosa showed no abnormalities. IMPRESSION AND PLAN: GI bleed Diverticulosis LUIS M UTI Hypertension Epilepsy History of CVA Current smoker Sepsis PLAN: Ms. Alcaraz is a 49-year-old female with a history of epilepsy and CVA. GI is following her for GI bleed. An endoscopy was done yesterday and it showed that she had monilial esophagitis in the mid esophagus and distal esophagus, reflux esophagitis in the distal esophagus. A 3 cm hiatal hernia and gastritis in the peripyloric region of the stomach and the gastric antrum and the duodenal mucosa showed no abnormalities. The patient is currently on PPIs twice a day. She is receiving Diflucan 100 mg daily. She is on iron twice a day and multivitamin daily for her anemia. The patient has been advised to avoid NSAIDs. We will continue with the iron and multivitamins for 90 days. The patient also started on MiraLAX 17 g daily. She will require outpatient endoscopy once the esophagitis heals. The patient needs to return to clinic in 3 to 4 weeks and follow up with Dr. Crenshaw. This plan was discussed with Dr. Vitale. Please call us for any further questions or concerns. Dictated by AVINASH Yun for Tomas Vitale MD MTDD
--- NOTE | 2019-12-18 14:46 | NEPHROLOGY PROGRESS NOTE ---
DATE: 12/18/2019 SUBJECTIVE: Patient resting in bed. She wants to go home. OBJECTIVE: Vital Signs: Temperature 98.2 degrees, pulse 71, respiratory rate 18, blood pressure 119/68. Intake 1.3 L, output 150 mL plus multiple voids that were not measured. General: This is a middle-aged female, chronically ill-appearing, resting in bed. No acute distress. HEENT: Normocephalic, atraumatic. Pale conjunctivae. Oral mucosa dry. Neck: Supple. No JVD. Cardiovascular: No murmur. Pulmonary: Clear bilaterally. Abdomen: Soft, positive bowel sounds. Genitourinary: Voiding. Extremities: No edema, clubbing, cyanosis. Is moving extremities and ambulatory. Integumentary: Skin is warm and dry. Neurologic: Nonfocal. LABORATORY DATA: Pending. ASSESSMENT AND PLAN: 1. Acute on chronic kidney disease, likely secondary to intravascular volume depletion. From a renal perspective, if she has had some improvement with her renal function overnight and is cleared by the primary, can be discharged at their discretion and will follow up with our office in 2 weeks. Otherwise, we will continue to follow with her in the hospital. Again, we did discuss with the patient that she may also have underlying acute tubular necrosis secondary to her previous nonsteroidal use. Her GFR is estimated probably 18 which is marginal but if she has some improvement with a GFR greater than 20, we can follow up and continue that as an outpatient. 2. Electrolytes and acid-base balance. We had restarted her bicarbonate yesterday. Her IV apparently infiltrated and was removed this morning. I will change her bicarbonate over to oral supplement. 3. Gastritis. Followed by primary and GI. She has been started on fluconazole. No changes. Dictated by AVINASH Guerra for Chinedu Potts MD cc: Chinedu Potts MD
--- NOTE | 2019-12-19 08:38 | DISCHARGE SUMMARY ---
ADMISSION DATE: 12/15/2019 DISCHARGE DATE: 12/18/2019 DISCHARGE DIAGNOSES: 1. Gastrointestinal bleeding, resolved. 2. Monilial esophagitis and distal esophagus gastritis. 3. Urinary tract infection. 4. Escherichia coli bacteremia. 5. Hypertension. 6. Epilepsy. 7. Acute on chronic kidney disease. CONSULTATIONS: 1. Dr. Crenshaw from GI. 2. Dr. Potts from Nephrology. PROCEDURES: 1. Sinus x-ray showed no sinusitis. 2. Abdomen and pelvic CT without contrast showed chronic pancreatitis, cholecystectomy, colonic diverticulosis and possible ureteritis. 3. Renal ultrasound showed increased renal cortical echotexture bilaterally, which is a nonspecific indicator of medical renal disease. 4. Endoscopy procedure showed monilial esophagitis in the mid esophagus and distal esophagus with reflux esophagitis in the distal esophagus, and 3 cm hiatal hernia. Gastritis was found in the pre pyloric region of the stomach and gastric antrum and the duodenal mucosa showed with no abnormalities. HOSPITAL COURSE: This is a 49-year-old, -[place] female with past medical history of CVA on aspirin, hypertension, 2 prior strokes who was complaining of a one-week history throbbing headache, photophobia and phonophobia which looks like migraine, but she was taking 8 to 10 tablets of 200 mg of Motrin for headaches. Two weeks before admission, she reported some hematochezia and right-sided flank pain. Here upon ER evaluation, she was found out to have GI bleeding with acute on chronic kidney disease and hypertension. We admitted this patient to the hospital, provided IV fluids and for GI bleeding. Dr. Crenshaw was consulted who performed an endoscopy, as above. Also, for acute on chronic kidney disease, we were monitoring her BMP which basically showed known anion gap metabolic acidosis. Evaluated by Nephrology, they restarted bicarbonate tablets. Also, she was found to have UTI secondary to Escherichia coli that was also present in the blood. Fortunately, this patient's E coli was sensitive to Levaquin. So, she is going to receive Levaquin for 14 days for this bacteremia. Hypertension has been under control as well as epilepsy. At this point, patient is definitely much more stable so we are going to release her. The patient is going to be seen by GI and also by nephrology to have followup of this chronic kidney disease. She was strongly recommended to avoid NSAIDs. DISCHARGE PHYSICAL EXAMINATION: Vital Signs: Temperature 99.3 degrees, heart rate 90, respiratory rate 18, blood pressure 135/83, O2 saturation 100% on room air. General: This is a 49-year-old, -[place] female lying in bed, in no acute distress. Cardiovascular: S1, S2 heard. No murmurs, gallops, or rubs. Regular rate and rhythm. Respiratory: Clear bilaterally to auscultation. No work of breathing or using accessory muscles. Abdomen: Soft, nontender to palpation. Bowel sounds present. No organomegaly. Extremities: No clubbing, cyanosis, or edema. Peripheral pulses present in both legs. Neurological: The patient is alert and oriented x3. Moves 4 extremities. DISCHARGE DISPOSITION: 1. Home to self-care. 2. Follow up with Dr. Potts from Nephrology in 2 weeks. 3[address] Follow with Dr. Saab in 6 weeks. LIST OF MEDICATIONS: 1. Multivitamins 1 tablet p.o. daily. 2. Fluconazole 100 mg 1 tablet p.o. daily for 10 days. 3. Icar C 1 tablet p.o. twice daily. 4. MiraLAX 1 pack twice daily. 5. Sodium bicarbonate 650 mg p.o. twice daily. 6. Levofloxacin 500 mg, 1 tablet p.o. daily for a couple weeks. 7. Tramadol 50 mg p.o. every 6 hours as needed for pain. 8. Keppra 750 mg 1 tablet p.o. b.i.d. 9. Lipitor 40 mg 1 tablet p.o. at bedtime. 10. Esomeprazole 40 mg 1 tablet p.o. daily. TIME SPENT ON DISCHARGE: Time spent discharging this patient, 32 minutes. cc: David Serrano MD
== END 2019-12-18 13:23 | disposition home or self-care (01) | DRG 378 ==
LOC: P.ED 17:09 → 3N 23:05 → SUATTDRO 23:05 → 3N 23:48
PROVIDERS: ATTEND Internal Medicine